=== PATIENT | male | born 2000 | race Caucasian/White ===

== ENCOUNTER 2022-12-05 16:42 | Inpatient (IN) ==
--- NOTE | 2022-12-05 17:33 | Emergency Department Note ---
History of Present Illness General Chief complaint: Abdominal Pain Stated complaint: ABDOMINAL PAIN Time Seen by Provider: 12/05/22 16:50 History of Present Illness This is an otherwise healthy 22-year-old male that presents to the emergency department via private vehicle. Patient referred by [facility]. Patient is here for evaluation of abdominal pain but notes he was referred here today secondary to abnormal testing prehospital. Patient states that he has been experiencing mid abdominal discomfort for the past few months. He states that he was then evaluated today at [facility]. Patient was informed there were abnormalities to his work-up and was referred here. Patient denies any pain at the present time. He feels well at the present time. He denies any history of blood clots. He denies any history of nausea, vomiting, chest pain, shortness of breath, fevers, chills, dizziness, headache or fatigue. No pertinent past medical history, surgeries or allergies. He has been taking some bismuth recently for his symptoms. He notes a few drops of blood in the diarrhea about a week ago but this has resolved. Patient notes that the abdominal pain worsened to its max discomfort about 2 weeks ago but since then has improved. Upon review of his prehospital testing as performed at [facility] there is a chest x-ray/abdomen x-ray revealing small bilateral pleural effusions suspected with bibasilar atelectasis. Normal bowel gas pattern. Ther e is a CK of 106. White blood cell count mildly elevated. Hemoglobin 14.4. D- dimer was elevated at 3826. Urine was negative. Lipase was normal. Metabolic panel overall without significant abnormality. Home Medications Medication Instructions Recorded Confirmed Type No Known Home Medications 12/05/22 12/05/22 History Allergies Allergy/AdvReac Type Severity Reaction Status Date / Time No Known Allergies Allergy Unverified 12/05/22 18:49 Past Med/Surg History Medical History No pertinent past medical history Surgical History No pertinent past surgical history Social History Smoking Status: Never smoker Feels Safe at Home: Yes Review of Systems A total of 10 systems reviewed and were otherwise negative Physical Exam Vital Signs Vital Signs - 24 hr 12/05/22 16:48 12/05/22 17:15 12/05/22 17:20 Temperature 36.5 C Temperature Source Temporal Artery Scan Pulse Rate 112 H 108 H Pulse Rate [Bilateral] 105 H Pulse Rate from SpO2 Sensor Respiratory Rate 20 16 Respiratory Effort / Characteristics Non-Labored Spontaneous Respiratory Depth Normal Blood Pressure 140/90 Blood Pressure [Left Arm] 113/79 Blood Pressure Mean 106 Blood Pressure Mean [Left Arm] 90 Pulse Oximetry 96 92 Oxygen Delivery Method Room Air Room Air Sepsis Recent Fever Within 48 Hours No Sepsis New/Unexplained Change in Mental Status No Sepsis Action Taken by Nursing No Action Required 12/05/22 18:36 12/05/22 19:00 12/05/22 20:00 Temperature Temperature Source Pulse Rate Pulse Rate [Bilateral] 97 H Pulse Rate from SpO2 Sensor 105 H 86 Respiratory Rate 16 12 Respiratory Effort / Characteristics Respiratory Depth Blood Pressure 135/95 Blood Pressure [Left Arm] 135/95 Blood Pressure Mean 108 Blood Pressure Mean [Left Arm] 108 Pulse Oximetry 97 95 94 Oxygen Delivery Method Room Air Sepsis Recent Fever Within 48 Hours Sepsis New/Unexplained Change in Mental Status Sepsis Action Taken by Nursing 12/05/22 20:30 12/05/22 21:00 12/05/22 21:30 Temperature Temperature Source Pulse Rate Pulse Rate [Bilateral] Pulse Rate from SpO2 Sensor 89 94 H 101 H Respiratory Rate Respiratory Effort / Characteristics Respiratory Depth Blood Pressure 130/78 Blood Pressure [Left Arm] Blood Pressure Mean 95 Blood Pressure Mean [Left Arm] Pulse Oximetry 97 97 98 Oxygen Delivery Method Sepsis Recent Fever Within 48 Hours Sepsis New/Unexplained Change in Mental Status Sepsis Action Taken by Nursing VITAL SIGNS - Vital signs and nursing notes were reviewed. Mildly tachycardic, otherwise stable GENERAL -22-year-old male appearing his stated age who is in no acute distress. Communicates well with provider and answers questions appropriately. SKIN - Without rashes. No meningeal or petechial rash HEAD - NC/AT. EYES - PERRL with EOMI bilaterally. Sclera anicteric. EARS - No deformities of external structures noted on gross examination bilaterally. NOSE - Midline and without cyanosis. No epistaxis or purulent drainage noted. MOUTH/OROPHARYNX - Without perioral cyanosis. NECK - Neck with FROM.No nuchal rigidity. LUNGS - Chest wall symmetric without accessory muscle use, intercostals retractions, or central cyanosis. Normal vesicular breath sounds CTA B/L. No wheezes, rales, or rhonchi appreciated. CARDIAC - RRR with S1/S2. No murmur, rubs, or gallops appreciated. ABDOMEN - Abdominal contour normal without pulsations or visible masses. BS normoactive all four quadrants. No tenderness but ascites suspected/fluid in the abdomen. EXTREMITIES - No clubbing or peripheral cyanosis. +5/5 strength noted in UE/LE bilaterally. NEUROLOGIC - Cranial nerves II through XII grossly intact. PSYCH - A&O, and cooperates fully with examiner. Pt is very pleasant and interacts well with examiner. -consent was obtained. Male commissioner of internal revenue JEFF Watkins at bedside. Testes within normal limits. Mild scrotal edema secondary to abdominopelvic ascites. No palpable mass. Course Administered Medications Discontinued Medications Ioversol (Optiray 320 125ml) 117 ml IV ONCE ONE Stop: 12/05/22 18:32 Last Admin: 12/05/22 18:31 Dose: 117 ml Documented By: NIKKY Medical Decision Making Laboratory Data 12/05/22 17:10 12/05/22 17:10 Lab Results 12/05/22 12/05/22 12/05/22 Range/Units 17:10 17:10 17:10 WBC 12.25 H (4.8-10.8) K/ul RBC 5.77 (4.70-6.10) M/uL Hgb 14.6 (14.0-18.0) g/dl Hct 44.0 (42.0-52.0) % MCV 76.3 L (80.0-100.0) fL MCH 25.3 (25.0-34.0) pg MCHC 33.2 (32.0-36.0) g/dL RDW Std Deviation 35.4 L (36.4-46.3) fL RDW Coeff of Ivan 13.2 (11.5-14.5) % Plt Count 556 H (130-400) K/uL MPV 8.8 L (9.4-12.4) fL Immature Gran % (Auto) 0.7 % Neut % (Auto) 77.5 % Lymph % (Auto) 12.2 % [place] % (Auto) 7.0 % Eos % (Auto) 1.9 % Baso % (Auto) 0.7 % Neut # (Auto) 9.49 H (1.40-6.50) K/uL Lymph # (Auto) 1.50 (1.2-3.4) K/uL [place] # (Auto) 0.86 H (0.11-0.59) K/uL Eos # (Auto) 0.23 (0-0.50) K/uL Baso # (Auto) 0.09 (0-0.2) K/uL Immature Gran # (Auto) 0.08 (0.01-0.20) K/uL ESR (0-15) mm/hr PT (9.0-12.0) Seconds INR (0.9-1.1) APTT (21.0-31.0) Seconds PTT Ratio Sodium 139 (136-145) mmol/L Potassium 3.6 (3.5-5.1) mmol/L Chloride 104 (98-107) mmol/L Carbon Dioxide 26 (21-32) mmol/L Anion Gap 9 (3-11) BUN 8 (6-23) mg/dl Creatinine 0.91 (0.6-1.4) mg/dl Est Cr Clr Drug Dosing 160.8 ml/min Est GFR ( Amer) 137.2 ml/min Est GFR (Non-Af Amer) 118.4 ml/min BUN/Creatinine Ratio 8.8 L (10-20) Glucose 95 (70-99(Fasting)) mg/dl Uric Acid 7.3 H (2.6-7.2) mg/dl Calcium 9.5 (8.6-10.3) mg/dl Total Bilirubin 0.3 (0.2-1.0) mg/dl AST 20 (13-39) U/L ALT 29 (7-52) U/L Alkaline Phosphatase 88 (34-104) U/L Troponin I High Sens 3.0 (0-20) pg/ml Total Protein 7.7 (6.0-8.3) gm/dl Albumin 4.1 (3.4-5.0) gm/dl Globulin 3.6 (2.5-4.0) gm/dl Albumin/Globulin Ratio 1.1 (0.9-2) Lipase 13 (11-82) U/L Lyme Disease IgG Ab Negative (Negative) Lyme Disease IgM Ab Negative (Negative) SARS-CoV-2, RNA, NAAT (NEGATIVE) 12/05/22 12/05/22 12/05/22 Range/Units 19:08 20:17 20:17 WBC (4.8-10.8) K/ul RBC (4.70-6.10) M/uL Hgb (14.0-18.0) g/dl Hct (42.0-52.0) % MCV (80.0-100.0) fL MCH (25.0-34.0) pg MCHC (32.0-36.0) g/dL RDW Std Deviation (36.4-46.3) fL RDW Coeff of Ivan (11.5-14.5) % Plt Count (130-400) K/uL MPV (9.4-12.4) fL Immature Gran % (Auto) % Neut % (Auto) % Lymph % (Auto) % [place] % (Auto) % Eos % (Auto) % Baso % (Auto) % Neut # (Auto) (1.40-6.50) K/uL Lymph # (Auto) (1.2-3.4) K/uL [place] # (Auto) (0.11-0.59) K/uL Eos # (Auto) (0-0.50) K/uL Baso # (Auto) (0-0.2) K/uL Immature Gran # (Auto) (0.01-0.20) K/uL ESR 32 H (0-15) mm/hr PT 11.6 (9.0-12.0) Seconds INR 1.1 (0.9-1.1) APTT 29.3 (21.0-31.0) Seconds PTT Ratio 1.0 Sodium (136-145) mmol/L Potassium (3.5-5.1) mmol/L Chloride (98-107) mmol/L Carbon Dioxide (21-32) mmol/L Anion Gap (3-11) BUN (6-23) mg/dl Creatinine (0.6-1.4) mg/dl Est Cr Clr Drug Dosing ml/min Est GFR ( Amer) ml/min Est GFR (Non-Af Amer) ml/min BUN/Creatinine Ratio (10-20) Glucose (70-99(Fasting)) mg/dl Uric Acid (2.6-7.2) mg/dl Calcium (8.6-10.3) mg/dl Total Bilirubin (0.2-1.0) mg/dl AST (13-39) U/L ALT (7-52) U/L Alkaline Phosphatase (34-104) U/L Troponin I High Sens (0-20) pg/ml Total Protein (6.0-8.3) gm/dl Albumin (3.4-5.0) gm/dl Globulin (2.5-4.0) gm/dl Albumin/Globulin Ratio (0.9-2) Lipase (11-82) U/L Lyme Disease IgG Ab (Negative) Lyme Disease IgM Ab (Negative) SARS-CoV-2, RNA, NAAT NEGATIVE (NEGATIVE) Imaging Data Radiologist's Impression: Abdomen/Pelvis CT 12/05/22 17:25 CT ANGIOGRAM OF THE CHEST; CT SCAN OF THE ABDOMEN AND PELVIS WITH IV CONTRAST CLINICAL HISTORY: Atypical chest pain. Generalized abdominal pain. Elevated d- dimer. COMPARISON STUDY: No priors. TECHNIQUE: Following the IV administration of of Optiray 320, CT angiogram of the chest is performed from the upper abdomen to the thoracic inlet utilizing the pulmonary embolus protocol. Images are reviewed in the axial, sagittal, coronal planes. 3-D MIPS images are created and assessed. Subsequently, CT scan of the abdomen and pelvis was performed from the lung bases to the proximal femora. Images are reviewed in the axial, sagittal, and coronal planes. IV contrast was administered without complication. A dose lowering technique was utilized adhering to the principles of ALARA. CT DOSE: 2323.64 mGy.cm FINDINGS: CHEST: Thyroid: Imaged portions of the thyroid gland are normal in size and attenuation. Thoracic aorta: The thoracic aorta is normal in caliber and demonstrates standard 3-vessel arch anatomy. No dissection is seen. Pulmonary vasculature: The pulmonary trunk is normal in caliber. There are no filling defects identified in the main, lobar, or segmental pulmonary arteries to indicate pulmonary embolus. Heart: The heart is mildly enlarged noting a small to moderate pericardial effusion. Lungs and pleural spaces: There are trace pleural effusions with bibasilar atelectasis. There is no airspace consolidation typical for pneumonia. The trachea and central airways are clear. Mediastinum: There is no mediastinal lymphadenopathy. Diana: Clear. Axillae: There is no axillary lymphadenopathy. Bony thorax: No lytic or blastic lesions are identified. ABDOMEN AND PELVIS: Liver: The contrast-enhanced liver is normal in size, contour, and attenuation. There is no intrahepatic biliary ductal dilatation. The hepatic veins and portal veins are patent. Gallbladder: Unremarkable. Spleen: Normal in size and attenuation. Pancreas: Unremarkable. Adrenal glands: Unremarkable. Kidneys: The contrast enhanced kidneys are normal in size and without hydronephrosis. The kidneys enhance symmetrically. Abdominal vasculature: The abdominal aorta is normal in course and caliber. Stomach and bowel: There is a small hiatal hernia. There is no bowel obst ruction. Residual enteric contrast is seen throughout the colon. The small bowel loops appear mildly thick walled. The appendix is normal as visualized. Peritoneum: There is a moderate volume of abdominopelvic ascites which appears at least partially loculated. There is mild associated peritoneal thickening. No intraperitoneal free air is seen. Lymphadenopathy: Mild enlargement cardiophrenic nodes measure up to 11 mm in short axis. No additional enlarged lymph nodes are seen in the abdomen or pelvis. Pelvic viscera: The bladder, prostate, and seminal vesicles are normal as visualized. Skeletal structures: No lytic or blastic lesions are seen. IMPRESSION: 1. There is no evidence of pulmonary embolus in the main, lobar, or segmental pulmonary arteries. 2. Mild cardiac enlargement noting a small to moderate pericardial effusion. 3. Trace pleural effusions. No airspace consolidation is seen typical for pneumonia. 4. There is a moderate volume of abdominopelvic ascites which appears to be at least partially loculated. There is associated peritoneal thickening. The etiology of this fluid is unclear, and the sterility of this fluid cannot be assessed by imaging. Correlate clinically. 5. The small bowel loops are mildly thick walled. This could be related to a nonspecific enteritis, hypoproteinemia, or possibly surrounding fluid/inflammation. Correlate clinically. 6. Additional findings as above. ACT 112: Negative or not required by law. Electronically signed by: Rob Buitrago M.D. 12/05/2022 6:50 PM Chest CTA 12/05/22 17:25 CT ANGIOGRAM OF THE CHEST; CT SCAN OF THE ABDOMEN AND PELVIS WITH IV CONTRAST CLINICAL HISTORY: Atypical chest pain. Generalized abdominal pain. Elevated d-d ginette. COMPARISON STUDY: No priors. TECHNIQUE: Following the IV administration of /17 of Optiray 320, CT angiogram of the chest is performed from the upper abdomen to the thoracic inlet utilizing the pulmonary embolus protocol. Images are reviewed in the axial, sagittal, coronal planes. 3-D MIPS images are created and assessed. Subsequently, CT scan of the abdomen and pelvis was performed from the lung bases to the proximal femora. Images are reviewed in the axial, sagittal, and coronal planes. IV contrast was administered without complication. A dose lowering technique was utilized adhering to the principles of ALARA. CT DOSE: 2323.64 mGy.cm FINDINGS: CHEST: Thyroid: Imaged portions of the thyroid gland are normal in size and attenua tion. Thoracic aorta: The thoracic aorta is normal in caliber and demonstrates standard 3-vessel arch anatomy. No dissection is seen. Pulmonary vasculature: The pulmonary trunk is normal in caliber. There are no filling defects identified in the main, lobar, or segmental pulmonary arteries to indicate pulmonary embolus. Heart: The heart is mildly enlarged noting a small to moderate pericardial effusion. Lungs and pleural spaces: There are trace pleural effusions with bibasilar atelectasis. There is no airspace consolidation typical for pneumonia. The trachea and central airways are clear. Mediastinum: There is no mediastinal lymphadenopathy. Diana: Clear. Axillae: There is no axillary lymphadenopathy. Bony thorax: No lytic or blastic lesions are identified. ABDOMEN AND PELVIS: Liver: The contrast-enhanced liver is normal in size, contour, and attenuation. There is no intrahepatic biliary ductal dilatation. The hepatic veins and portal veins are patent. Gallbladder: Unremarkable. Spleen: Normal in size and attenuation. Pancreas: Unremarkable. Adrenal glands: Unremarkable. Kidneys: The contrast enhanced kidneys are normal in size and without hydronephrosis. The kidneys enhance symmetrically. Abdominal vasculature: The abdominal aorta is normal in course and caliber. Stomach and bowel: There is a small hiatal hernia. There is no bowel obstruction. Residual enteric contrast is seen throughout the colon. The small bowel loops appear mildly thick walled. The appendix is normal as visualized. Peritoneum: There is a moderate volume of abdominopelvic ascites which appears at least partially loculated. There is mild associated peritoneal thickening. No intraperitoneal free air is seen. Lymphadenopathy: Mild enlargement cardiophrenic nodes measure up to 11 mm in short axis. No additional enlarged lymph nodes are seen in the abdomen or pelvis. Pelvic viscera: The bladder, prostate, and seminal vesicles are normal as visualized. Skeletal structures: No lytic or blastic lesions are seen. IMPRESSION: 1. There is no evidence of pulmonary embolus in the main, lobar, or segmental pulmonary arteries. 2. Mild cardiac enlargement noting a small to moderate pericardial effusion. 3. Trace pleural effusions. No airspace consolidation is seen typical for pneumonia. 4. There is a moderate volume of abdominopelvic ascites which appears to be at least partially loculated. There is associated peritoneal thickening. The etiology of this fluid is unclear, and the sterility of this fluid cannot be assessed by imaging. Correlate clinically. 5. The small bowel loops are mildly thick walled. This could be related to a nonspecific enteritis, hypoproteinemia, or possibly surrounding fluid/inflammation. Correlate clinically. 6. Additional findings as above. ACT 112: Negative or not required by law. Electronically signed by: Rob Buitrago M.D. 12/05/2022 6:50 PM MDM Narrative Patient was seen and evaluated as above in room C07. Review was performed of triage nursing notes and vital signs. Records from [facility] provided by the patient in the room reviewed. Patient was noted to have undergone a chest x-ray with abdominal series which revealed small bilateral pleural effusion suspected along with bibasilar atelectasis with a normal bowel gas pattern. Patient also had a CPK, CBC, D-dimer, urinalysis, CMP, lipase. D- dimer was found to be significantly elevated at 3826. There is no chest pain or shortness of breath. No history of PE. After obtaining a thorough history and physical examination the above work up was performed. Options of care were discussed with the patient. IV access was established. Labs were drawn. There is leukocytosis 12.25. No anemia. No emergent metabolic disturbance. Troponin within normal limits. An EKG was obtained which reveals sinus tachycardia at a rate of 102 bpm. QTc 424. QRS 86. There is no ST elevation. CT scan of the abdomen and pelvis as well as CTA of the chest was obtained. Results as above. There is no PE. There is mild cardiac enlargement with a small to moderate pericardial effusion. Trace pleural effusions noted. No pneumonia. There is moderate volume of abdominopelvic ascites which appears to be at least partially loculated. There is associated peritoneal thickening. The patient on examination does not have any abdominal tenderness palpation. There is no guarding or rigidity. No reported fevers. He does not appear ill on exam. There is also on CT small bowel loops that are mildly thick-walled. At this time given the findings and presentation I do believe that further evaluation and management in the inpatient setting is warranted. Case discussed with the hospitalist service. Please refer to further documentation regarding his stay. I do not believe that he requires emergent paracentesis or emergent antibiotics but certainly his clinical course will be trended in the inpatient setting. I will again note that the patient on examination has no complaints of any pain or symptoms. He is symptom-free presently. He has no tenderness to palpation of the abdomen. There is no chest pain or shortness of breath. GCS: 15 In the evaluation and treatment of this patient the following differential diagnoses were entertained: Peritonitis, PE, pneumonia, malignancy, among others Impression & Plan Abdominal ascites, Pleural effusion, Pericardial effusion, Abnormal CT scan, chest, Abnormal computed tomography of abdomen and pelvis Discharge Plan Visit Data Chief Complaint: Abdominal Pain Stated Complaint: ABDOMINAL PAIN ED Provider: Doc Sanchez ED Midlevel Provider: Kirby Urbano Discharge Problem: Abdominal ascites, Pleural effusion, Pericardial effusion, Abnormal CT scan, chest, Abnormal computed tomography of abdomen and pelvis Patient Disposition: Admitted As Inpatient Condition: Good Discharge Instructions Interventions: ED Discharge Assessment Last Done: 12/05/22 21:41 Prescriptions Prescriptions: No Action No Known Home Medications
[2022-12-05 17:56] LABS: Basophils # (auto) 0.09 K/uL (0-0.2); Basophils % (auto) 0.7 %; Eosinophils # (auto) 0.23 K/uL (0-0.50); Eosinophils % (auto) 1.9 %; Hemoglobin 14.6 g/dl (14.0-18.0); Immature Granulocytes # (auto) 0.08 K/uL (0.01-0.20); Immature Granulocytes % (auto) 0.7 %; Lymphocytes % (auto) 12.2 %; Mean Corpuscular Hemoglobin 25.3 pg (25.0-34.0); Mean Corpuscular Hgb Conc 33.2 g/dL (32.0-36.0); Mean Corpuscular Volume 76.3 fL (80.0-100.0); Mean Platelet Volume 8.8 fL (9.4-12.4); Monocytes # (auto) 0.86 K/uL (0.11-0.59); Neutrophils # (auto) 9.49 K/uL (1.40-6.50); Neutrophils % (auto) 77.5 %; Platelet Count 556 K/uL (130-400); RDW Coefficient of Variation 13.2 % (11.5-14.5); RDW Standard Deviation 35.4 fL (36.4-46.3); Red Blood Count 5.77 M/uL (4.70-6.10); White Blood Count 12.25 K/ul (4.8-10.8)
[2022-12-05 18:14] LABS: Albumin Globulin Ratio 1.1 (0.9-2); Albumin Level 4.1 gm/dl (3.4-5.0); BUN Creatinine Ratio 8.8 (10-20); Bilirubin,Total 0.3 mg/dl (0.2-1.0); Calcium 9.5 mg/dl (8.6-10.3); Creatinine Clr Calc Pharmacy 160.8 ml/min; Est GFR (African American) 137.2 ml/min; Est GFR (Non-African American) 118.4 ml/min; Globulin 3.6 gm/dl (2.5-4.0); Potassium 3.6 mmol/L (3.5-5.1); Total Protein 7.7 gm/dl (6.0-8.3)
[2022-12-05] MEDS ORDERED: OPTIRAY 320 125ml IV ONE (18:31)
--- NOTE | 2022-12-05 18:52 | CT Scan Report ---
CT ANGIOGRAM OF THE CHEST; CT SCAN OF THE ABDOMEN AND PELVIS WITH IV CONTRAST CLINICAL HISTORY: Atypical chest pain. Generalized abdominal pain. Elevated d-dimer. COMPARISON STUDY: No priors. TECHNIQUE: Following the IV administration of of Optiray 320, CT angiogram of the chest is perfor med from the upper abdomen to the thoracic inlet utilizing the pulmonary embolus protocol. Images are reviewed in the axial, sagittal, coronal planes. 3-D MIPS images are created and assessed. Subsequen tly, CT scan of the abdomen and pelvis was performed from the lung bases to the proximal femora. Imag es are reviewed in the axial, sagittal, and coronal planes. IV contrast was administered without comp lication. A dose lowering technique was utilized adhering to the principles of ALARA. CT DOSE: 2323.64 mGy.cm FINDINGS: CHEST: Thyroid: Imaged portions of the thyroid gland are normal in size and attenuation. Thoracic aorta: The thoracic aorta is normal in caliber and demonstrates standard 3-vessel arch anato my. No dissection is seen. Pulmonary vasculature: The pulmonary trunk is normal in caliber. There are no filling defects identif ied in the main, lobar, or segmental pulmonary arteries to indicate pulmonary embolus. Heart: The heart is mildly enlarged noting a small to moderate pericardial effusion. Lungs and pleural spaces: There are trace pleural effusions with bibasilar atelectasis. There is no a irspace consolidation typical for pneumonia. The trachea and central airways are clear. Mediastinum: There is no mediastinal lymphadenopathy. Diana: Clear. Axillae: There is no axillary lymphadenopathy. Bony thorax: No lytic or blastic lesions are identified. ABDOMEN AND PELVIS: Liver: The contrast-enhanced liver is normal in size, contour, and attenuation. There is no intrahepa tic biliary ductal dilatation. The hepatic veins and portal veins are patent. Gallbladder: Unremarkable. Spleen: Normal in size and attenuation. Pancreas: Unremarkable. Adrenal glands: Unremarkable. Kidneys: The contrast enhanced kidneys are normal in size and without hydronephrosis. The kidneys enh ance symmetrically. Abdominal vasculature: The abdominal aorta is normal in course and caliber. Stomach and bowel: There is a small hiatal hernia. There is no bowel obstruction. Residual enteric co ntrast is seen throughout the colon. The small bowel loops appear mildly thick walled. The appendix i s normal as visualized. Peritoneum: There is a moderate volume of abdominopelvic ascites which appears at least partially loc ulated. There is mild associated peritoneal thickening. No intraperitoneal free air is seen. Lymphadenopathy: Mild enlargement cardiophrenic nodes measure up to 11 mm in short axis. No additiona l enlarged lymph nodes are seen in the abdomen or pelvis. Pelvic viscera: The bladder, prostate, and seminal vesicles are normal as visualized. Skeletal structures: No lytic or blastic lesions are seen. IMPRESSION: 1. There is no evidence of pulmonary embolus in the main, lobar, or segmental pulmonary arteries. 2. Mild cardiac enlargement noting a small to moderate pericardial effusion. 3. Trace pleural effusions. No airspace consolidation is seen typical for pneumonia. 4. There is a moderate volume of abdominopelvic ascites which appears to be at least partially locula ab. There is associated peritoneal thickening. The etiology of this fluid is unclear, and the steril ity of this fluid cannot be assessed by imaging. Correlate clinically. 5. The small bowel loops are mildly thick walled. This could be related to a nonspecific enteritis, h ypoproteinemia, or possibly surrounding fluid/inflammation. Correlate clinically. 6. Additional findings as above. ACT 112: Negative or not required by law. Electronically signed by: Rob Buitrago M.D. 12/05/2022 6:50 PM
--- NOTE | 2022-12-05 20:35 | History & Physical Report ---
Date of Service December 05, 2022 Assessment & Plan (1) Abdominal ascites: (2) Pericardial effusion: (3) Cardiac enlargement: (4) Thickened small bowel: Plan Abdominopelvic ascites/small bowel wall thickening- Radiologic interpretation suggest possible nonspecific enteritis, hypoprotei nemia or possibly surrounding fluid/inflammation. Patient's only symptoms are that of mild generalized abdominal pain, without nausea or vomiting or diarrhea. Unclear etiology at this time Consult gastroenterology Consult IR for diagnostic paracentesis Pericardial effusion- Patient denies chest pain, shortness of breath, dyspnea on exertion or any other associated symptoms Is also mild cardiac enlargement The patient will be admitted to telemetry for serial cardiac enzymes, serial EKG's, cardiac rhythm monitoring and a 2-D echocardiogram with Dopplers. Consult cardiology Leukocytosis/thrombocytosis- WBC 12.25, platelets 556 Order peripheral smear Order following studies: Acute hepatitis profile, PT/INR/PTT, sed rate, SABRINA, peripheral smear, parvovirus, coxsackie B virus, tick panel History of Present Illness Chief Complaint: The patient is referred to the emergency department from [facility] due to his presentation there with abdominal pain and subsequent laboratories showing an elevated D-dimer Primary Care Provider: [facility] The patient is a 22-year-old Sinhala male with no significant past medical history who has been setting at [facility] for 6 months. He presented to the [facility] there due to abdominal pain that been persistent for the past 2 weeks, and figured it was finally time to get it checked out. He has no other associated symptomatology such as nausea, vomiting or diarrhea. He denies any alcohol or drug use. He had laboratory work done there that included an elevated D-dimer, and was thus referred to the emergency department for assessment for possible blood clots. Significant laboratories: WBC 12.25, hemoglobin 14.6, hematocrit 44.[address] angiography of chest along with CT abdomen the pelvis: Small to moderate- sized pericardial effusion. Moderate ascites that may be partially loculated. Nonspecific enteritis. Allergies Allergy/AdvReac Type Severity Reaction Status Date / Time No Known Allergies Allergy Unverified 12/05/22 18:49 Home Medications Medication Instructions Recorded Confirmed Type No Known Home Medications 12/05/22 12/05/22 History Past Med/Surg History Medical History No pertinent past medical history Surgical History No pertinent past surgical history Social History Smoking Status: Never smoker Feels Safe at Home: Yes Review of Systems Review of Systems: The patient denies chest pain, palpitations, shortness of breath, dyspnea on exertion, cough, lower extremity swelling, sore throat, fevers, chills, sweats, weight change, fatigue, nausea, vomiting, diarrhea , constipation, blood in urine or stool, dysuria, urinary frequency or urgency, lightheadedness, dizziness, headache, memory loss, loss of consciousness, rash, abnormal bruising or bleeding, imbalance, focal or generalized weakness, numbness or tingling in arms or legs, generalized arthralgias or myalgias, back or neck pain, or night sweats. The review of systems is otherwise negative other than for that already noted above, and at least 10 systems have been reviewed. Physical Exam Physical Exam: The patient is awake, alert and oriented 3, well developed and well nourished, normocephalic and atraumatic, lying in bed and in no acute distress. HEENT--PERRL, EOMI, mucous membranes and oropharynx normal. Neck--supple. No JVD. No bruits. Thyroid normal, trachea midline, no adenopathy. Heart--normal S1 and S2. No murmurs, rubs or gallops. Lungs--clear bilaterally, no respiratory distress, no accessory muscle use. Abdomen--normal bowel sounds and soft. Nontender. Nondistended. Obese Extremities--no cyanosis or clubbing. No edema. There are good distal pulses b/l. Dermatologic--normal skin turgor, normal color, no abnormal lymph nodes, no ra sh. Neurologic--cranial nerves II through XII grossly intact. Rheumatologic--normal range of motion. Psychiatric--normal affect. Results & Data Results & Data Vital Signs (Past 12 Hours) Vital Signs Temp Pulse Pulse Resp BP BP Pulse Ox 12/05/22 19:00 12 135/95 95 12/05/22 18:36 97 H 16 135/95 97 12/05/22 17:20 108 H 12/05/22 17:15 105 H 16 113/79 92 12/05/22 16:48 36.5 C 112 H 20 140/90 96 O2 Del Method 12/05/22 19:00 12/05/22 18:36 Room Air 12/05/22 17:20 12/05/22 17:15 Room Air 12/05/22 16:48 Room Air Laboratory Results Laboratory Results WBC 12.25 K/ul (4.8-10.8) H 12/05/22 17:10 RBC 5.77 M/uL (4.70-6.10) 12/05/22 17:10 Hgb 14.6 g/dl (14.0-18.0) 12/05/22 17:10 Hct 44.0 % (42.0-52.0) 12/05/22 17:10 MCV 76.3 fL (80.0-100.0) L 12/05/22 17:10 MCH 25.3 pg (25.0-34.0) 12/05/22 17:10 MCHC 33.2 g/dL (32.0-36.0) 12/05/22 17:10 RDW Std Deviation 35.4 fL (36.4-46.3) L 12/05/22 17:10 RDW Coeff of Ivan 13.2 % (11.5-14.5) 12/05/22 17:10 Plt Count 556 K/uL (130-400) H 12/05/22 17:10 MPV 8.8 fL (9.4-12.4) L 12/05/22 17:10 Immature Gran % (Auto) 0.7 % 12/05/22 17:10 Neut % (Auto) 77.5 % 12/05/22 17:10 Lymph % (Auto) 12.2 % 12/05/22 17:10 Lea % (Auto) 7.0 % 12/05/22 17:10 Eos % (Auto) 1.9 % 12/05/22 17:10 Baso % (Auto) 0.7 % 12/05/22 17:10 Neut # (Auto) 9.49 K/uL (1.40-6.50) H 12/05/22 17:10 Lymph # (Auto) 1.50 K/uL (1.2-3.4) 12/05/22 17:10 Lea # (Auto) 0.86 K/uL (0.11-0.59) H 12/05/22 17:10 Eos # (Auto) 0.23 K/uL (0-0.50) 12/05/22 17:10 Baso # (Auto) 0.09 K/uL (0-0.2) 12/05/22 17:10 Immature Gran # (Auto) 0.08 K/uL (0.01-0.20) 12/05/22 17:10 ESR 32 mm/hr (0-15) H 12/05/22 20:17 PT 11.6 Seconds (9.0-12.0) 12/05/22 20:17 INR 1.1 (0.9-1.1) 12/05/22 20:17 APTT 29.3 Seconds (21.0-31.0) 12/05/22 20:17 PTT Ratio 1.0 12/05/22 20:17 Sodium 139 mmol/L (136-145) 12/05/22 17:10 Potassium 3.6 mmol/L (3.5-5.1) 12/05/22 17:10 Chloride 104 mmol/L (98-107) 12/05/22 17:10 Carbon Dioxide 26 mmol/L (21-32) 12/05/22 17:10 Anion Gap 9 (3-11) 12/05/22 17:10 BUN 8 mg/dl (6-23) 12/05/22 17:10 Creatinine 0.91 mg/dl (0.6-1.4) 12/05/22 17:10 Est Cr Clr Drug Dosing 160.8 ml/min 12/05/22 17:10 Est GFR ( Amer) 137.2 ml/min 12/05/22 17:10 Est GFR (Non-Af Amer) 118.4 ml/min 12/05/22 17:10 BUN/Creatinine Ratio 8.8 (10-20) L 12/05/22 17:10 Glucose 95 mg/dl (70-99(Fasting)) 12/05/22 17:10 Uric Acid 7.3 mg/dl (2.6-7.2) H 12/05/22 17:10 Calcium 9.5 mg/dl (8.6-10.3) 12/05/22 17:10 Total Bilirubin 0.3 mg/dl (0.2-1.0) 12/05/22 17:10 AST 20 U/L (13-39) 12/05/22 17:10 ALT 29 U/L (7-52) 12/05/22 17:10 Alkaline Phosphatase 88 U/L (34-104) 12/05/22 17:10 Troponin I High Sens 3.0 pg/ml (0-20) 12/05/22 17:10 Total Protein 7.7 gm/dl (6.0-8.3) 12/05/22 17:10 Albumin 4.1 gm/dl (3.4-5.0) 12/05/22 17:10 Globulin 3.6 gm/dl (2.5-4.0) 12/05/22 17:10 Albumin/Globulin Ratio 1.1 (0.9-2) 12/05/22 17:10 Lipase 13 U/L (11-82) 12/05/22 17:10 Lyme Disease IgG Ab Negative (Negative) 12/05/22 17:10 Lyme Disease IgM Ab Negative (Negative) 12/05/22 17:10 SARS-CoV-2, RNA, NAAT NEGATIVE (NEGATIVE) 12/05/22 19:08 Impressions Abdomen/Pelvis CT 12/05/22 17:25 CT ANGIOGRAM OF THE CHEST; CT SCAN OF THE ABDOMEN AND PELVIS WITH IV CONTRAST CLINICAL HISTORY: Atypical chest pain. Generalized abdominal pain. Elevated d- dimer. COMPARISON STUDY: No priors. TECHNIQUE: Following the IV administration of 17 of Optiray 320, CT angiogram of the chest is performed from the upper abdomen to the thoracic inlet utilizing the pulmonary embolus protocol. Images are reviewed in the axial, sagittal, coronal planes. 3-D MIPS images are created and assessed. Subsequently, CT scan of the abdomen and pelvis was performed from the lung bases to the proximal femora. Images are reviewed in the axial, sagittal, and coronal planes. IV contrast was administered without complication. A dose lowering technique was utilized adhering to the principles of ALARA. CT DOSE: 2323.64 mGy.cm FINDINGS: CHEST: Thyroid: Imaged portions of the thyroid gland are normal in size and attenuation. Thoracic aorta: The thoracic aorta is normal in caliber and demonstrates standard 3-vessel arch anatomy. No dissection is seen. Pulmonary vasculature: The pulmonary trunk is normal in caliber. There are no filling defects identified in the main, lobar, or segmental pulmonary arteries to indicate pulmonary embolus. Heart: The heart is mildly enlarged noting a small to moderate pericardial effus ion. Lungs and pleural spaces: There are trace pleural effusions with bibasilar atelectasis. There is no airspace consolidation typical for pneumonia. The trachea and central airways are clear. Mediastinum: There is no mediastinal lymphadenopathy. Diana: Clear. Axillae: There is no axillary lymphadenopathy. Bony thorax: No lytic or blastic lesions are identified. ABDOMEN AND PELVIS: Liver: The contrast-enhanced liver is normal in size, contour, and attenuation. There is no intrahepatic biliary ductal dilatation. The hepatic veins and portal veins are patent. Gallbladder: Unremarkable. Spleen: Normal in size and attenuation. Pancreas: Unremarkable. Adrenal glands: Unremarkable. Kidneys: The contrast enhanced kidneys are normal in size and without hydronephrosis. The kidneys enhance symmetrically. Abdominal vasculature: The abdominal aorta is normal in course and caliber. Stomach and bowel: There is a small hiatal hernia. There is no bowel obstruction. Residual enteric contrast is seen throughout the colon. The small bowel loops appear mildly thick walled. The appendix is normal as visualized. Peritoneum: There is a moderate volume of abdominopelvic ascites which appears at least partially loculated. There is mild associated peritoneal thickening. No intraperitoneal free air is seen. Lymphadenopathy: Mild enlargement cardiophrenic nodes measure up to 11 mm in short axis. No additional enlarged lymph nodes are seen in the abdomen or pelvis. Pelvic viscera: The bladder, prostate, and seminal vesicles are normal as visualized. Skeletal structures: No lytic or blastic lesions are seen. IMPRESSION: 1. There is no evidence of pulmonary embolus in the main, lobar, or segmental pulmonary arteries. 2. Mild cardiac enlargement noting a small to moderate pericardial effusion. 3. Trace pleural effusions. No airspace consolidation is seen typical for pneumonia. 4. There is a moderate volume of abdominopelvic ascites which appears to be at least partially loculated. There is associated peritoneal thickening. The etiology of this fluid is unclear, and the sterility of this fluid cannot be assessed by imaging. Correlate clinically. 5. The small bowel loops are mildly thick walled. This could be related to a nonspecific enteritis, hypoproteinemia, or possibly surrounding fluid/inflammation. Correlate clinically. 6. Additional findings as above. ACT 112: Negative or not required by law. Electronically signed by: Rob Buitrago M.D. 12/05/2022 6:50 PM Chest CTA 12/05/22 17:25 CT ANGIOGRAM OF THE CHEST; CT SCAN OF THE ABDOMEN AND PELVIS WITH IV CONTRAST CLINICAL HISTORY: Atypical chest pain. Generalized abdominal pain. Elevated d- dimer. COMPARISON STUDY: No priors. TECHNIQUE: Following the IV administration of / of Optiray 320, CT angiogram of the chest is performed from the upper abdomen to the thoracic inlet utilizing the pulmonary embolus protocol. Images are reviewed in the axial, sagittal, coronal planes. 3-D MIPS images are created and assessed. Subsequently, CT scan of the abdomen and pelvis was performed from the lung bases to the proximal femora. Images are reviewed in the axial, sagittal, and coronal planes. IV contrast was administered without complication. A dose lowering technique was utilized adhering to the principles of ALARA. CT DOSE: 2323.64 mGy.cm FINDINGS: CHEST: Thyroid: Imaged portions of the thyroid gland are normal in size and attenuation. Thoracic aorta: The thoracic aorta is normal in caliber and demonstrates standard 3-vessel arch anatomy. No dissection is seen. Pulmonary vasculature: The pulmonary trunk is normal in caliber. There are no filling defects identified in the main, lobar, or segmental pulmonary arteries to indicate pulmonary embolus. Heart: The heart is mildly enlarged noting a small to moderate pericardial effusion. Lungs and pleural spaces: There are trace pleural effusions with bibasilar atelectasis. There is no airspace consolidation typical for pneumonia. The trachea and central airways are clear. Mediastinum: There is no mediastinal lymphadenopathy. Diana: Clear. Axillae: There is no axillary lymphadenopathy. Bony thorax: No lytic or blastic lesions are identified. ABDOMEN AND PELVIS: Liver: The contrast-enhanced liver is normal in size, contour, and attenuation. There is no intrahepatic biliary ductal dilatation. The hepatic veins and portal veins are patent. Gallbladder: Unremarkable. Spleen: Normal in size and attenuation. Pancreas: Unremarkable. Adrenal glands: Unremarkable. Kidneys: The contrast enhanced kidneys are normal in size and without hydronephrosis. The kidneys enhance symmetrically. Abdominal vasculature: The abdominal aorta is normal in course and caliber. Stomach and bowel: There is a small hiatal hernia. There is no bowel obstruction. Residual enteric contrast is seen throughout the colon. The small bowel loops appear mildly thick walled. The appendix is normal as visualized. Peritoneum: There is a moderate volume of abdominopelvic ascites which appears at least partially loculated. There is mild associated peritoneal thickening. No intraperitoneal free air is seen. Lymphadenopathy: Mild enlargement cardiophrenic nodes measure up to 11 mm in short axis. No additional enlarged lymph nodes are seen in the abdomen or pelvis. Pelvic viscera: The bladder, prostate, and seminal vesicles are normal as visualized. Skeletal structures: No lytic or blastic lesions are seen. IMPRESSION: 1. There is no evidence of pulmonary embolus in the main, lobar, or segmental pulmonary arteries. 2. Mild cardiac enlargement noting a small to moderate pericardial effusion. 3. Trace pleural effusions. No airspace consolidation is seen typical for pneumonia. 4. There is a moderate volume of abdominopelvic ascites which appears to be at least partially loculated. There is associated peritoneal thickening. The etiology of this fluid is unclear, and the sterility of this fluid cannot be assessed by imaging. Correlate clinically. 5. The small bowel loops are mildly thick walled. This could be related to a n onspecific enteritis, hypoproteinemia, or possibly surrounding fluid/inflammation. Correlate clinically. 6. Additional findings as above. ACT 112: Negative or not required by law. Electronically signed by: Rob Buitrago M.D. 12/05/2022 6:50 PM Code Status & VTE Plan Code Status Full code VTE Prophylaxis Plan VTE Prophylaxis will be ordered: Yes PG Care Time/CCT Total # of Minutes Spent Total Time Spent with Patient: Total time spent is greater than 50% in coordination of care (as documented) at patient's floor/unit and/or counseling patient: Coding Level of Care Code 43440 INT INP/OBS CARE 3/75MIN Diagnoses Abdominal ascites R18.8 Pericardial effusion I31.39 Cardiac enlargement I51.7 Thickened small bowel K63.9
[2022-12-05 20:41] LABS: Uric Acid 7.3 mg/dl (2.6-7.2)
[2022-12-05 21:08] LABS: INR 1.1 (0.9-1.1); Partial Thromboplastin Time 29.3 Seconds (21.0-31.0); Prothrombin Time 11.6 Seconds (9.0-12.0)
[2022-12-05 21:45] LABS: Lyme Ab IgG w/WB Rflx Negative (Negative); Lyme Ab IgM w/WB Rflx Negative (Negative)
[2022-12-05] MEDS ORDERED: ONDANSETRON INJ 2 MG/ML 2 ML VIAL IV PRN (22:08)
[2022-12-05] MEDS: NSS + 20MEQ KCL 20 MEQ/1,000 ML BAG IV SCH (23:36)
[2022-12-06 05:35] LABS: Basophils # (auto) 0.07 K/uL (0-0.2); Basophils % (auto) 0.6 %; Eosinophils # (auto) 0.33 K/uL (0-0.50); Eosinophils % (auto) 2.8 %; Hematocrit (blood only) 40.9 % (42.0-52.0); Hemoglobin 13.5 g/dl (14.0-18.0); Immature Granulocytes # (auto) 0.06 K/uL (0.01-0.20); Immature Granulocytes % (auto) 0.5 %; Lymphocytes % (auto) 14.3 %; Mean Corpuscular Hemoglobin 25.2 pg (25.0-34.0); Mean Corpuscular Volume 76.3 fL (80.0-100.0); Mean Platelet Volume 8.7 fL (9.4-12.4); Monocytes # (auto) 1.01 K/uL (0.11-0.59); Monocytes % (auto) 8.5 %; Neutrophils # (auto) 8.73 K/uL (1.40-6.50); Neutrophils % (auto) 73.3 %; Platelet Count 452 K/uL (130-400); RDW Coefficient of Variation 13.4 % (11.5-14.5); RDW Standard Deviation 36.7 fL (36.4-46.3); Red Blood Count 5.36 M/uL (4.70-6.10)
[2022-12-06 05:54] LABS: Albumin Globulin Ratio 1.1 (0.9-2); Albumin Level 3.6 gm/dl (3.4-5.0); Bilirubin,Total 0.4 mg/dl (0.2-1.0); Calcium 8.9 mg/dl (8.6-10.3); Creatinine Clr Calc Pharmacy 135.4 ml/min; Est GFR (African American) 122.4 ml/min; Est GFR (Non-African American) 105.6 ml/min; Globulin 3.2 gm/dl (2.5-4.0); Magnesium 2.4 mg/dl (1.7-2.4); Potassium 4.1 mmol/L (3.5-5.1); Total Protein 6.8 gm/dl (6.0-8.3)
[2022-12-06 06:00] LABS: Troponin I High Sensitivity 4.5 pg/ml (0-20)
--- NOTE | 2022-12-06 07:41 | Hospitalist Progress Note ---
Date of Service December 06, 2022 Assessment & Plan (1) Abdominal ascites: (2) Pericardial effusion: (3) Cardiac enlargement: (4) Thickened small bowel: Plan Abdominopelvic ascites/small bowel wall thickening- Radiologic interpretation suggest possible nonspecific enteritis, hypoproteinemia or possibly surrounding fluid/inflammation. Awaiting full paracentesis report. Currently the ddx includes malignancy, infectious with an emphasis on viral hepatitis, or autoimmune etiology. Hgb mildly low. Acute Hep panel and PT/INR/PTT do not suggest present hepatitis. * Unclear etiology at this time * Consult gastroenterology appreciate recs * Preliminary results from paracentesis are nondiagnostic, awaiting culture and cytology with gram stain Pericardial effusion- Patient denies chest pain, shortness of breath, dyspnea on exertion or any other associated symptoms. Is also mild cardiac enlargement * Telemetry for serial cardiac enzymes * Serial EKG's * Cardiac rhythm monitoring and a 2-D echocardiogram with Doppler's. * Consult cardiology appreciate recs Leukocytosis/thrombocytosis- WBC 12.25, platelets 556 * Order peripheral smear Sed rate, SABRINA, peripheral smear, parvovirus, coxsackie B virus, tick panel pending Admission and Anticipated Discharge Date Admission Date: December 05, 2022 Supervising Physician Co-Signing Physician Notes I personally examined the patient and verified all colon points of history and exam, discussed case, and agree with decision making with Yocasta Langston MS4 and Dr Guillen Feeling okay. Paracentesis done, tolerated well, most detailed studies are still pending. Updated patient to the best my ability. Vitals noted, in general he is awake and alert pleasant no distress. HEENT normocephalic atraumatic mucous membranes moist. Breathing unlabored no accessory muscle use good effort. Skin shows no rashes no pallor or icterus. Neuro without focal deficits. Abdominal pain/loculated asciteswide differential, await further peritoneal studies. Fortunately stable. Cook Helper Juice input appreciated. DVT prophylaxisambulation Horacio Rodriguez is a 22 yo male with no previous medical issues who presented yesterday from [facility] after 2 weeks of abdominal discomfort. He states that he felt "stiffness" and mild pain over the last 2 weeks, worse in the beginning but persistent. He decided to come into [facility] simply because it had been going on for 2 weeks. He did state that he had very little appetite yesterday. He is on no medications. He has never been admitted to the hospital before and has only had knee surgery. 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 Per H&P he denies smoking, EtOH, or other substances. Today he reports that the stiffness is "feeling better than yesterday but still is there". His last BM was yesterday afternoon. He denies n/v/d/c, chest pain, sob, difficulties urinating, denied weight loss, fevers, chills, or night sweats. Review of Systems Constitutional: See HPI Eyes: Denied blurry vision Respiratory: Denied cough or shortness of breath. Cardiovascular: Additional Comments: Denied chest pain, palpitations Gastrointestinal: Denied nausea, vomiting, diarrhea, abdominal pain. Genitourinary: no dysuria, no difficulty urinating or no urinary frequency Physical Exam Constitutional: Alert and oriented x3 in hopsital bed Eyes: Pupils were equal, normal shape, and reactive. Neck: Respiratory: CTA, no increased work of breathing Cardiovascular: Normal rate and regular rhythm. No RMG auscultated on exam. Radial pulses equal b/l. Gastrointestinal (Abdomen): Distended, nontender, normoactive bowel sounds. Musculoskeletal: Upper extremity 5/5 strength Lower extremity 5/5 strength Skin: Warm dry, no apparent rashes. Psychiatric: Appropriate mood and affect. Lymphatic: No lymphadenopathy in the neck and cervical region. Results & Data Results & Data Vital Signs (Past 12 Hours) Vital Signs Temp Pulse Pulse Resp BP Pulse Ox O2 Del Method 12/06/22 15:35 87 12/06/22 15:22 36.9 C 89 20 134/81 96 Room Air 12/06/22 12:14 37.2 C 90 18 120/70 94 Room Air 12/06/22 11:44 37 C 95 H 18 118/68 95 Room Air 12/06/22 10:30 36.8 C 92 H 18 119/80 95 Room Air 12/06/22 11:30 37.5 C 83 20 121/66 94 Room Air 12/06/22 09:11 Room Air 12/06/22 07:42 36.9 C 80 20 125/77 95 Room Air 12/06/22 07:18 83 Laboratory Results 12/06/22 05:23 12/06/22 05:23 ESR: 32 (H) C reactive Protein: 12.29 (H) Diagnostic Findings Abdomen/Pelvis CT 12/05/22 17:25 CT ANGIOGRAM OF THE CHEST; CT SCAN OF THE ABDOMEN AND PELVIS WITH IV CONTRAST FINDINGS: CHEST: Thyroid: Imaged portions of the thyroid gland are normal in size and attenuation. Thoracic aorta: The thoracic aorta is normal in caliber and demonstrates standard 3-vessel arch anatomy. No dissection is seen. Pulmonary vasculature: The pulmonary trunk is normal in caliber. There are no filling defects identified in the main, lobar, or segmental pulmonary arteries to indicate pulmonary embolus. Heart: The heart is mildly enlarged noting a small to moderate pericardial effusion. Lungs and pleural spaces: There are trace pleural effusions with bibasilar atelectasis. There is no airspace consolidation typical for pneumonia. The trachea and central airways are clear. Mediastinum: There is no mediastinal lymphadenopathy. Diana: Clear. Axillae: There is no axillary lymphadenopathy. Bony thorax: No lytic or blastic lesions are identified. ABDOMEN AND PELVIS: Liver: The contrast-enhanced liver is normal in size, contour, and attenuation. There is no intrahepatic biliary ductal dilatation. The hepatic veins and portal veins are patent. Gallbladder: Unremarkable. Spleen: Normal in size and attenuation. Pancreas: Unremarkable. Adrenal glands: Unremarkable. Kidneys: The contrast enhanced kidneys are normal in size and without hydronephrosis. The kidneys enhance symmetrically. Abdominal vasculature: The abdominal aorta is normal in course and caliber. Stomach and bowel: There is a small hiatal hernia. There is no bowel obstruction. Residual enteric contrast is seen throughout the colon. The small bowel loops appear mildly thick walled. The appendix is normal as visualized. Peritoneum: There is a moderate volume of abdominopelvic ascites which appears at least partially loculated. There is mild associated peritoneal thickening. No intraperitoneal free air is seen. Lymphadenopathy: Mild enlargement cardiophrenic nodes measure up to 11 mm in short axis. No additional enlarged lymph nodes are seen in the abdomen or pelvis. Pelvic viscera: The bladder, prostate, and seminal vesicles are normal as visualized. Skeletal structures: No lytic or blastic lesions are seen. IMPRESSION: 1. There is no evidence of pulmonary embolus in the main, lobar, or segmental pulmonary arteries. 2. Mild cardiac enlargement noting a small to moderate pericardial effusion. 3. Trace pleural effusions. No airspace consolidation is seen typical for pneumonia. 4. There is a moderate volume of abdominopelvic ascites which appears to be at least partially loculated. There is associated peritoneal thickening. The etiology of this fluid is unclear, and the sterility of this fluid cannot be assessed by imaging. Correlate clinically. 5. The small bowel loops are mildly thick walled. This could be related to a nonspecific enteritis, hypoproteinemia, or possibly surrounding fluid/inflammation. Correlate clinically. 6. Additional findings as above. Chest CTA 12/05/22 17:25 CT ANGIOGRAM OF THE CHEST; CT SCAN OF THE ABDOMEN AND PELVIS WITH IV CONTRAST CLINICAL HISTORY: Atypical chest pain. Generalized abdominal pain. Elevated d-di tammy. COMPARISON STUDY: No priors. TECHNIQUE: Following the IV administration of of Optiray 320, CT angiogram of the chest is performed from the upper abdomen to the thoracic inlet utilizing the pulmonary embolus protocol. Images are reviewed in the axial, sagittal, coronal planes. 3-D MIPS images are created and assessed. Subsequently, CT scan of the abdomen and pelvis was performed from the lung bases to the proximal femora. Images are reviewed in the axial, sagittal, and coronal planes. IV contrast was administered without complication. A dose lowering technique was utilized adhering to the principles of ALARA. CT DOSE: 2323.64 mGy.cm FINDINGS: CHEST: Thyroid: Imaged portions of the thyroid gland are normal in size and attenuation. Thoracic aorta: The thoracic aorta is normal in caliber and demonstrates standard 3-vessel arch anatomy. No dissection is seen. Pulmonary vasculature: The pulmonary trunk is normal in caliber. There are no filling defects identified in the main, lobar, or segmental pulmonary arteries to indicate pulmonary embolus. Heart: The heart is mildly enlarged noting a small to moderate pericardial effusion. Lungs and pleural spaces: There are trace pleural effusions with bibasilar atelectasis. There is no airspace consolidation typical for pneumonia. The trachea and central airways are clear. Mediastinum: There is no mediastinal lymphadenopathy. Diana: Clear. Axillae: There is no axillary lymphadenopathy. Bony thorax: No lytic or blastic lesions are identified. ABDOMEN AND PELVIS: Liver: The contrast-enhanced liver is normal in size, contour, and attenuation. There is no intrahepatic biliary ductal dilatation. The hepatic veins and portal veins are patent. Gallbladder: Unremarkable. Spleen: Normal in size and attenuation. Pancreas: Unremarkable. Adrenal glands: Unremarkable. Kidneys: The contrast enhanced kidneys are normal in size and without hydronephrosis. The kidneys enhance symmetrically. Abdominal vasculature: The abdominal aorta is normal in course and caliber. Stomach and bowel: There is a small hiatal hernia. There is no bowel obstruction. Residual enteric contrast is seen throughout the colon. The small bowel loops appear mildly thick walled. The appendix is normal as visualized. Peritoneum: There is a moderate volume of abdominopelvic ascites which appears at least partially loculated. There is mild associated peritoneal thickening. No intraperitoneal free air is seen. Lymphadenopathy: Mild enlargement cardiophrenic nodes measure up to 11 mm in short axis. No additional enlarged lymph nodes are seen in the abdomen or pelvis. Pelvic viscera: The bladder, prostate, and seminal vesicles are normal as visualized. Skeletal structures: No lytic or blastic lesions are seen. IMPRESSION: 1. There is no evidence of pulmonary embolus in the main, lobar, or segmental pulmonary arteries. 2. Mild cardiac enlargement noting a small to moderate pericardial effusion. 3. Trace pleural effusions. No airspace consolidation is seen typical for pneumonia. 4. There is a moderate volume of abdominopelvic ascites which appears to be at least partially loculated. There is associated peritoneal thickening. The etiology of this fluid is unclear, and the sterility of this fluid cannot be assessed by imaging. Correlate clinically. 5. The small bowel loops are mildly thick walled. This could be related to a nonspecific enteritis, hypoproteinemia, or possibly surrounding fluid/inflammation. Correlate clinically. 6. Additional findings as above. Paracentesis Ultrasound 12/06/22 20:33 Ultrasound-guided diagnostic paracentesis INDICATION: Ascites PROCEDURE: Procedure and risks were explained. Informed consent was obtained. A final timeout was completed. The left abdomen was prepped and draped in sterile fashion. 1% buffered lidocaine was utilized for skin anesthesia. Utilizing ultrasound guidance, a 5 Nepalese safety centesis catheter was advanced into the pocket of ascites. Ultrasound images were obtained. 1 L was removed and sent to the lab for analysis. The catheter was removed and Band-Aid applied. The patient tolerated the procedure well. Vital signs will be monitored postprocedure. IMPRESSION: Ultrasound-guided paracentesis as above.
--- NOTE | 2022-12-06 09:30 | XCELERA ---
[id number]
--- NOTE | 2022-12-06 09:57 | Gastrointestinal Consultation ---
Date of Consultation December 06, 2022 Assessment & Plan (1) Abnormal computed tomography of abdomen and pelvis: (2) Abdominal ascites: Plan Clinical situation discussed with Dr. Méndez. Would advise obtaining a Celiac panel, initiate BID PPI therapy, await cardiac work-up, and await results of the fluid studies from the paracentesis ordered through IR. Further GI recommendations pending results of those tests. Infectious work-up ordered and pending per primary team (added syphilis r/o this AM) and it appears a rheumatologic work-up has been started as well. Supervising Physician Co-Signing Physician Notes Discussed with AUDREY Christine and agree with above He underwent Paracentesis today with removal of 1 L of fluid. SAAG 0.3, and less than 1.1, therefore no evidence of portal hypertension. He is tolerating PO intake. Abd: Soft, NT, ND, +BS Continue current therapy and supportive care Recommend Urine protein as fluid studies from paracentesis suggest Nephrotic syndrome. History of Present Illness Reason for Consultation: "Ascites & pain, ? etiology" Attending Physician: Lucien Gómez DO History of Present Illness Patient is a 22 yo male without significant PMH who presented to the ED at the request of the [facility] due to abdominal distention and abdominal discomfort that has been ongoing for 2 weeks. He denies nausea, vomiting, diarrhea, GI bleeding. As an outpatient, an elevated D dimer was obtained and prompted further evaluation at the ED. WBC count elevated at 11,[address] chest/abdomen/pelvis was obtained and noted mild cardiac enlargement with mild to moderate pericardial effusion, trace pleural effusions, moderate abdominopelvic ascites with loculation and peritoneal thickening, and a thick-walled small bowel suggestive of a possible enteritis vs hypoproteinemia vs inflammation. A cardiac work-up and IR paracentesis is pending at the time of this consult. No pertinent family history. Allergies Allergy/AdvReac Type Severity Reaction Status Date / Time No Known Allergies Allergy Unverified 12/05/22 18:49 Home Medications Medication Instructions Recorded Confirmed Type No Known Home Medications 12/05/22 12/05/22 History Patient History Medical History No pertinent past medical history Surgical History No pertinent past surgical history Social History Smoking Status: Never smoker Hx Alcohol Use: No Hx Substance Use: No Preferred Language: Fijian Communication Ability: Effective Napkin Machine Operator Required: No Beliefs That Will Affect Care: None Current Living Situation: Alone Other Information That Helps Us Care for You: No Feels Safe at Home: Yes Safety Concerns: Feels Safe At This Time Assistive Devices: None Review of Systems Constitutional: no fever and no chills Respiratory: no cough and no dyspnea Gastrointestinal: + abdominal pain Integumentary: no problem reported Psychiatric: no problem reported Hematologic / Lymphatic: no unexplained weight loss Physical Exam Constitutional: well developed Respiratory: normal respiratory effort Cardiovascular: Rate/Rhythm: regular rate Gastrointestinal (Abdomen): Percussion/Palpation: abdomen soft; abdomen nontender Musculoskeletal: Head/Neck/Chest: normocephalic Psychiatric: Orientation: alert and oriented x 3 Results & Data Vital Signs (Past 12 Hours) Vital Signs Temp Pulse Pulse Resp BP Pulse Ox O2 Del Method 12/06/22 09:11 Room Air 12/06/22 07:42 36.9 C 80 20 125/77 95 Room Air 12/06/22 07:18 83 12/06/22 03:00 36.8 C 86 20 116/74 95 Room Air 12/05/22 21:45 36.7 C 82 18 138/83 99 Room Air 12/05/22 21:52 92 H 12/05/22 21:45 36.7 C 82 18 138/83 99 Room Air PG Care Time/CCT Total # of Minutes Spent Total Time Spent with Patient: Total time spent is greater than 50% in coordination of care (as documented) at patient's floor/unit and/or counseling patient: Coding Level of Care Code 26924 IN/OBS CONSULT LVL 4,60M Diagnoses Abnormal computed tomography of abdomen and pelvis R93.5 Abdominal ascites R18.8
[2022-12-06] MEDS: PANTOprazole 40 MG in SYRINGE 0 ML IV SCH ×2 (10:02→19:54)
--- NOTE | 2022-12-06 11:52 | Cardiology Consultation ---
Date of Consultation December 06, 2022 Assessment & Plan (1) Pericardial effusion: -felt to be small to moderate in size by CT scan. -echocardiogram notes a trivial effusion at best. -of no clinical importance. -could consider a repeat echocardiogram in approximately 1 month. History of Present Illness Attending Physician: Lucien Gómez DO History of Present Illness Mr. Ibarra is a 22-year-old male admitted yesterday with abdominal discomfort. A CT scan of the chest noted a small to moderate pericardial effusion, and therefore, this consultation was ordered. The patient was in his usual state of health until approximately 2 weeks prior to presentation. He began to note a vague abdominal discomfort and eventually presented to [facility]. Blood work was performed which revealed an elevated D-dimer, and therefore, the patient was sent to the emergency room for further care. As part of his workup to rule out a pulmonary embolism, CT scan of the chest was performed. Fortunately, this showed no evidence of a pulmonary embolism or aortic dissection. However, name small to moderate pericardial effusion was noted. The patient has not had any recent viral illnesses. He has no history of cardiac disease. Currently, patient is resting comfortably in bed without complaints. 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 Allergies Allergy/AdvReac Type Severity Reaction Status Date / Time No Known Allergies Allergy Unverified 12/05/22 18:49 Home Medications Medication Instructions Recorded Confirmed Type No Known Home Medications 12/05/22 12/05/22 History Patient History Medical History No pertinent past medical history Surgical History No pertinent past surgical history Social History Smoking Status: Never smoker Hx Alcohol Use: No Hx Substance Use: No Preferred Language: Estonian Communication Ability: Effective Mortgage Loan Funder Required: No Beliefs That Will Affect Care: None Current Living Situation: Alone Other Information That Helps Us Care for You: No Feels Safe at Home: Yes Safety Concerns: Feels Safe At This Time Assistive Devices: None Physical Exam Physical Exam: In general this is a well-developed well-nourished white male in no acute distress. HEENT exam is negative. Neck is supple with full carotid upstrokes. There are no carotid bruits. Jugular venous pressure is flat at 90. There is no thyromegaly. Cardiovascular exam reveals a regular rhythm with a normal S1 and a physiologic split S2. No S3, S4, or murmurs are noted. Lungs are clear without rales, rhonchi, or wheezes. Abdomen is soft and nontender without bruits. Extremities reveal intact radial artery and posterior tibial pulses bilaterally. There is no peripheral edema. Results & Data Vital Signs (Past 12 Hours) Vital Signs Temp Pulse Pulse Resp BP Pulse Ox O2 Del Method 12/06/22 10:30 36.8 C 92 H 18 119/80 95 Room Air 12/06/22 11:30 37.5 C 83 20 121/66 94 Room Air 12/06/22 09:11 Room Air 12/06/22 07:42 36.9 C 80 20 125/77 95 Room Air 12/06/22 07:18 83 12/06/22 03:00 36.8 C 86 20 116/74 95 Room Air Laboratory Results CBC notes hemoglobin 13.5, crit 40.9, white count 11.9, and platelet count of [id number]. Electrolytes note a sodium 139, potassium 4.1, chloride 105, bicarb 27, BUN 9, creatinine 1.0, glucose of 92. Initial high sensitivity troponin was 3.0 with a follow-up value of 4.5. Diagnostic Findings Echocardiogram notes normal left ventricular systolic function with ejection fraction of 60-65%. There are no wall motion abnormalities. No valvular pathology. A trivial pericardial effusion is noted. PG Care Time/CCT Total # of Minutes Spent Total Time Spent with Patient: Total time spent is greater than 50% in coordination of care (as documented) at patient's floor/unit and/or counseling patient: Coding Level of Care Code 94404 IN/OBS CONSULT LVL 4,60M Diagnoses Pericardial effusion I31.39
[2022-12-06] MEDS: NSS + 20MEQ KCL 20 MEQ/1,000 ML BAG IV SCH (13:02)
[2022-12-06 13:09] LABS: Albumin Peritoneal Fluid 3.3 gm/dl
[2022-12-06 13:15] LABS: Total Protein Peritoneal Fluid 5.7 gm/dl
[2022-12-06 13:26] LABS: Appearance Peritoneal Fluid Hazy; Color Peritoneal Fluid Pale Yellow; RBC Peritoneal Fluid Auto < 2000 /uL; WBC Peritoneal Fluid Auto 245 /ul (0-300)
--- NOTE | 2022-12-06 13:36 | Electrocardiogram Report ---
Test Reason : Blood Pressure : / mmHG Vent. Rate : 102 BPM Atrial Rate : 102 BPM P-R Int : 162 ms QRS Dur : 086 ms QT Int : 326 ms P-R-T Axes : 023 004 024 degrees QTc Int : 424 ms Sinus tachycardia Otherwise normal ECG No previous ECGs available Confirmed by Doc Chamberlain ([id number]) on 12/06/2022 1:36:02 PM Referred By: [facility] Confirmed By:Doc Chamberlain
--- NOTE | 2022-12-06 13:56 | Ultrasound Report ---
Ultrasound-guided diagnostic paracentesis INDICATION: Ascites PROCEDURE: Procedure and risks were explained. Informed consent was obtained. A final timeout was com pleted. The left abdomen was prepped and draped in sterile fashion. 1% buffered lidocaine was utilize d for skin anesthesia. Utilizing ultrasound guidance, a 5 Serbian safety centesis catheter was advanced into the pocket of as mauricio. Ultrasound images were obtained. 1 L was removed and sent to the lab for analysis. The cathete r was removed and Band-Aid applied. The patient tolerated the procedure well. Vital signs will be mon itored postprocedure. IMPRESSION: Ultrasound-guided paracentesis as above. Performed, dictated, and signed by Josh Gustafson PA-C; to be co-signed by Dr. Luis Montes. Electronically signed by: Luis Montes M.D. 12/06/2022 2:04 PM
[2022-12-06 14:05] LABS: Basophils, Fluid 8 %; Eosinophils, Fluid 23 %; Lymphocytes, Fluid 18 %; Mono,Macrophage,Mesothelial 31 %; Neutrophils, Fluid 20 %
--- NOTE | 2022-12-06 16:55 | Billing Data ---
Date of Service December 06, 2022 Coding Level of Care Code 05512 SUB INP/OBS CARE MIN
[2022-12-06 19:59] LABS: Appearance Urine Clear (Clear); Bilirubin Urine Negative (Negative); Blood Urine Negative (Negative); Color Urine Yellow; Glucose Urine UA Negative (Negative); Ketones Urine 2+ (Negative); Leukocyte Esterase Urine Negative (Negative); Nitrite Urine Negative (Negative); Protein Urine Negative (Negative); Specific Gravity Urine 1.028 (1.000-1.030); Urobilinogen Urine Negative (Negative); pH Urine 5.5 (4.5-7.5)
[2022-12-07] MEDS: NSS + 20MEQ KCL 20 MEQ/1,000 ML BAG IV SCH ×2 (01:36→14:46)
--- NOTE | 2022-12-07 07:22 | Hospitalist Progress Note ---
Date of Service December 07, 2022 Assessment & Plan (1) Abdominal ascites: (2) Pericardial effusion: (3) Cardiac enlargement: (4) Thickened small bowel: Plan Abdominopelvic ascites/small bowel wall thickening- 3 episodes of diarrhea. Radiologic interpretation suggest possible nonspecific enteritis, hypoproteinemia or possibly surrounding fluid/inflammation. Awaiting full paracentesis report. Currently the ddx includes Malignancy: less likely with negative paracentesis, no obvious growth, no LN enlargment, no usual risk factors. Infectious with an emphasis on viral hepatitis: no present risk factors for hepatitis, viral panel is still pending. Autoimmune etiology: Elevated non specfic inflammatory markers, Hgb mildly low, SABRINA and IgA pending. * Unclear etiology at this time * Consult gastroenterology, appreciate recs * Paracentesis: Negative for malignancy, negative culture Pericardial effusion- Patient denies chest pain, shortness of breath, dyspnea on exertion or any other associated symptoms. Is also mild cardiac enlargement * Cardiology: Suggests Pericardial effusion of no clinical importance. * Echocardiogram: Normal Leukocytosis/thrombocytosis- WBC 12.25, platelets 556 * Peripheral Smear: No significant abnormalities. Sed rate, SABRINA, parvovirus, coxsackie B virus, tick panel pending Admission and Anticipated Discharge Date Admission Date: December 05, 2022 Supervising Physician Co-Signing Physician Notes I personally examined the patient and verified all colon points of history and exam, discussed case, and agree with decision making with Yocasta Langston MS4 Feeling okay. pain was a little worse overnight but back to better now. discussed with surgery - input greatly appreciated. Vitals noted, in general he is awake and alert pleasant no distress. HEENT normocephalic atraumatic mucous membranes moist. Breathing unlabored no accessory muscle use good effort. Skin shows no rashes no pallor or icterus. Neuro without focal deficits. abd soft nd mild periumbilical tenderness no epigastric tenderness no guarding no rebound Abdominal pain/loculated ascitesfortunately w/u fairly bland making active infection or malignancy far lower on ddx. ?previous viral infection with significant inflammation resulting in a lot of fluid now manifest as residual ascites? continue to follow closely. DVT prophylaxisambulation Subjective No acute events overnight. Today, he was feeling worse. He reports the pain yesterday was about a 2/10, last night it went up to about a 5/10, and is down to about a 4/10 this morning. He did not receive any pain medication last night. He also reports liquid stools yesterday through this morning. He reports that the pain is worse after he eats, therefore he is eating his breakfast slowly this morning. He denies any pain related to the area of paracentesis. Review of Systems Constitutional: Denied fever, night sweats, fatigue, weakness, dizziness Eyes: Denied blurry vision Respiratory: Denied cough or shortness of breath. Cardiovascular: Additional Comments: Denied chest pain, palpitations Gastrointestinal: Denied nausea, vomiting. Endorses diarrhea, abdominal pain. Genitourinary: no dysuria, no difficulty urinating or no urinary frequency Neurologic: Denied weaknesss, numbness, or tingling. Physical Exam Constitutional: Alert and oriented x3 in hopsital bed Neck: Respiratory: CTA, no increased work of breathing Cardiovascular: Normal rate and regular rhythm. S1 S2, no additional heart sounds auscultated. Radial pulses equal b/l. Capillary refill less than 2 sec. Gastrointestinal (Abdomen): Nondistended, nontender to palpation, normoactive bowel sounds. Musculoskeletal: Moves all extremeties independently Skin: Warm dry, no apparent rashed. Psychiatric: Appropriate mood and affect. Results & Data Results & Data Vital Signs (Past 12 Hours) Vital Signs Temp Pulse Pulse Resp BP Pulse Ox O2 Del Method 12/07/22 06:58 115 H 12/07/22 03:34 37.4 C 95 H 18 119/75 93 Room Air 12/06/22 23:33 98 H 12/06/22 23:33 37.7 C H 99 H 20 121/77 96 Room Air 12/06/22 19:52 37.2 C 92 H 20 126/83 92 Room Air Laboratory Results Peripheral Smear: "No significant morphologic abnormalities are seen. The overall findings are that of a non-specific leukocytosis (neutrophilia) and thrombocytosis. Red cells are noted to be microcytic by MCV. The findings could be seen with a wide variety of infectious and reactive processes. No organisms are identified. Overt changes of a neoplastic disorder are not evident."
[2022-12-07 07:30] LABS: Basophils # (auto) 0.07 K/uL (0-0.2); Basophils % (auto) 0.6 %; Eosinophils # (auto) 0.24 K/uL (0-0.50); Hematocrit (blood only) 41.3 % (42.0-52.0); Hemoglobin 13.6 g/dl (14.0-18.0); Immature Granulocytes # (auto) 0.08 K/uL (0.01-0.20); Immature Granulocytes % (auto) 0.7 %; Lymphocytes # (auto) 1.63 K/uL (1.2-3.4); Lymphocytes % (auto) 13.3 %; Mean Corpuscular Hemoglobin 24.9 pg (25.0-34.0); Mean Corpuscular Hgb Conc 32.9 g/dL (32.0-36.0); Mean Corpuscular Volume 75.5 fL (80.0-100.0); Mean Platelet Volume 8.9 fL (9.4-12.4); Monocytes # (auto) 0.99 K/uL (0.11-0.59); Monocytes % (auto) 8.1 %; Neutrophils # (auto) 9.21 K/uL (1.40-6.50); Neutrophils % (auto) 75.3 %; Platelet Count 480 K/uL (130-400); RDW Coefficient of Variation 13.3 % (11.5-14.5); RDW Standard Deviation 35.8 fL (36.4-46.3); Red Blood Count 5.47 M/uL (4.70-6.10); White Blood Count 12.22 K/ul (4.8-10.8)
[2022-12-07] MEDS: PANTOprazole 40 MG in SYRINGE 0 ML IV SCH ×2 (07:37→20:17)
[2022-12-07 07:39] LABS: Albumin Globulin Ratio 1.1 (0.9-2); Albumin Level 3.4 gm/dl (3.4-5.0); BUN Creatinine Ratio 12.2 (10-20); Bilirubin,Total 0.4 mg/dl (0.2-1.0); Calcium 8.4 mg/dl (8.6-10.3); Creatinine Clr Calc Pharmacy 149.2 ml/min; Globulin 3.2 gm/dl (2.5-4.0); Magnesium 2.1 mg/dl (1.7-2.4); Potassium 4.2 mmol/L (3.5-5.1); Total Protein 6.6 gm/dl (6.0-8.3)
--- NOTE | 2022-12-07 09:19 | Surgery Consultation ---
Date of Consultation December 07, 2022 Assessment & Plan (1) Abdominal ascites: This is a 22yM here from [facility] as a student, with no significant PMH who presents to the [facility] on 12/05/22 with 2 weeks of abdominal pain. This is associated with diarrhea. In our ER he underwent a CT chest/a/p showed a small to moderate pericardial effusion, trace pleural effusions, moderate volume of abdominopelvic ascites with associated peritoneal thickening. In addition it shows the small bowel loops are mildly thick walled, which could be related to a nonspecific enteritis, hypoproteinemia, or possibly surrounding fluid/inflammation. The patient reports his pain is always present and actually feels somewhat worse than when he came in a couple days ago. He ended up undergoing paracentesis on 12/06 and 1 L was removed. cytology negative for malignancy. gram stain/cultures no growth to date. cardiology obtained echo and only scant pericardial effusion noted. GI on board and sending off hepatitis and celiac studies. other studies such as tick borne, parvo, coxsackie all remain pending. May benefit from sending off stool studies. Unclear etiology, however fortunately no signs of malignancy from CT scan and paracentesis studies. no plans for surgical intervention from our standpoint. should await full workup of current labs pending. he will likely benefit from staying another night or two to see how he fairs. patient was seen/examined with dr. buchanan. Supervising Physician Co-Signing Physician Notes I discussed the case with the primary service yesterday at this time we will continue work-up including getting stool cultures as the patient has developed diarrhea No surgical intervention at this time is indicated but cannot be ruled out and symptoms persist and if no other noninvasive etiology is found for the symptoms History of Present Illness Attending Physician: Lucien Gómez, History of Present Illness This is a 22yM here from [facility] as a student, with no significant PMH who presents to the [facility] on 12/05/22 with 2 weeks of abdominal pain. Due to the longevity of the pain he went to [facility] for workup and was recommended to come to our ER for further evaluation. In our ER he underwent a CT chest/a/p showed a small to moderate pericardial effusion, trace pleural effusions, moderate volume of abdominopelvic ascites with associated peritoneal thickening. In addition it shows the small bowel loops are mildly thick walled, which could be related to a nonspecific enteritis, hypoproteinemia, or possibly surrounding fluid/inflammation. The patient reports his pain is always present and actually feels somewhat worse than when he came in a couple days ago. This is associated with some diarrhea. He denies any recent travel out of the country. Was in [place] about 1 month ago. He denies eating anything out of the ordinary. Denies fevers/chills, nausea/vomiting, rashes, myalgias, heart issues or family history of heart issues. No recent weight gain He ended up undergoing paracentesis on 12/06 and 1 L was removed. cytology negative for malignancy. gram stain/cultures no growth to date. 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 Beliefs That Will Affect Care: None Current Living Situation: Alone Other Information That Helps Us Care for You: No Feels Safe at Home: Yes Safety Concerns: Feels Safe At This Time Assistive Devices: None Review of Systems Constitutional: no fever, no chills and no malaise Respiratory: no dyspnea Cardiovascular: no chest pain Additional Comments: no family or personal cardiac history he is aware of Gastrointestinal: + abdominal pain (vague, diffuse, mildly worse in mid L side) and + diarrhea/loose stools; no nausea and no vomiting Genitourinary: no problem reported Musculoskeletal: no myalgia Integumentary: no rashes Physical Exam Physical Exam: awake/alert Constitutional: well developed, well nourished and comfortable; no acute distress and not ill appearing Respiratory: normal respiratory effort Cardiovascular: Rate/Rhythm: regular rhythm Gastrointestinal (Abdomen): Inspection/Auscultation: + abdomen distended (mild) Percussion/Palpation: + abdomen tender (discomfort to palpation in R mid abdomen and L mid abdomen) and abdomen soft Results & Data Vital Signs (Past 12 Hours) Vital Signs Temp Pulse Pulse Resp BP Pulse Ox O2 Del Method 12/07/22 07:30 Room Air 12/07/22 07:25 36.7 C 94 H 18 130/83 93 Room Air 12/07/22 06:58 115 H 12/07/22 03:34 37.4 C 95 H 18 119/75 93 Room Air 12/06/22 23:33 98 H 12/06/22 23:33 37.7 C H 99 H 20 121/77 96 Room Air Diagnostic Findings CT ANGIOGRAM OF THE CHEST; CT SCAN OF THE ABDOMEN AND PELVIS WITH IV CONTRAST CLINICAL HISTORY: Atypical chest pain. Generalized abdominal pain. Elevated d- dimer. COMPARISON STUDY: No priors. TECHNIQUE: Following the IV administration of of Optiray 320, CT angiogram of the chest is performed from the upper abdomen to the thoracic inlet utilizing the pulmonary embolus protocol. Images are reviewed in the axial, sagittal, coronal planes. 3-D MIPS images are created and assessed. Subsequently, CT scan of the abdomen and pelvis was performed from the lung bases to the proximal femora. Images are reviewed in the axial, sagittal, and coronal planes. IV contrast was administered without complication. A dose lowering technique was utilized adhering to the principles of ALARA. CT DOSE: 2323.64 mGy.cm FINDINGS: CHEST: Thyroid: Imaged portions of the thyroid gland are normal in size and attenuation. Thoracic aorta: The thoracic aorta is normal in caliber and demonstrates standard 3-vessel arch anatomy. No dissection is seen. Pulmonary vasculature: The pulmonary trunk is normal in caliber. There are no filling defects identified in the main, lobar, or segmental pulmonary arteries to indicate pulmonary embolus. Heart: The heart is mildly enlarged noting a small to moderate pericardial effusion. Lungs and pleural spaces: There are trace pleural effusions with bibasilar atelectasis. There is no airspace consolidation typical for pneumonia. The trachea and central airways are clear. Mediastinum: There is no mediastinal lymphadenopathy. Diana: Clear. Axillae: There is no axillary lymphadenopathy. Bony thorax: No lytic or blastic lesions are identified. ABDOMEN AND PELVIS: Liver: The contrast-enhanced liver is normal in size, contour, and attenuation. There is no intrahepatic biliary ductal dilatation. The hepatic veins and portal veins are patent. Gallbladder: Unremarkable. Spleen: Normal in size and attenuation. Pancreas: Unremarkable. Adrenal glands: Unremarkable. Kidneys: The contrast enhanced kidneys are normal in size and without hydronephrosis. The kidneys enhance symmetrically. Abdominal vasculature: The abdominal aorta is normal in course and caliber. Stomach and bowel: There is a small hiatal hernia. There is no bowel obstruction. Residual enteric contrast is seen throughout the colon. The small bowel loops appear mildly thick walled. The appendix is normal as visualized. Peritoneum: There is a moderate volume of abdominopelvic ascites which appears at least partially loculated. There is mild associated peritoneal thickening. No intraperitoneal free air is seen. Lymphadenopathy: Mild enlargement cardiophrenic nodes measure up to 11 mm in short axis. No additional enlarged lymph nodes are seen in the abdomen or pelvis. Pelvic viscera: The bladder, prostate, and seminal vesicles are normal as visualized. Skeletal structures: No lytic or blastic lesions are seen. IMPRESSION: 1. There is no evidence of pulmonary embolus in the main, lobar, or segmental pulmonary arteries. 2. Mild cardiac enlargement noting a small to moderate pericardial effusion. 3. Trace pleural effusions. No airspace consolidation is seen typical for pn eumonia. 4. There is a moderate volume of abdominopelvic ascites which appears to be at least partially loculated. There is associated peritoneal thickening. The etiology of this fluid is unclear, and the sterility of this fluid cannot be assessed by imaging. Correlate clinically. 5. The small bowel loops are mildly thick walled. This could be related to a nonspecific enteritis, hypoproteinemia, or possibly surrounding fluid/inflammation. Correlate clinically. 6. Additional findings as above. ACT 112: Negative or not required by law Electronically signed by: Rob Buitrago M.D. 12/05/2022 6:50 PM PG Care Time/CCT Total # of Minutes Spent Total Time Spent with Patient: Total time spent is greater than 50% in coordination of care (as documented) at patient's floor/unit and/or counseling patient: Coding Level of Care Code 30251 IN/OBS CONSULT LVL 3,45M Diagnoses Abdominal ascites R18.8
--- NOTE | 2022-12-07 13:55 | Billing Data ---
Date of Service December 07, 2022 Coding Level of Care Code 45850 SUB INP/OBS CARE MIN
[2022-12-07] MEDS ORDERED: ACETAMINOPHEN 325 MG TAB PO PRN (14:04)
[2022-12-07] MEDS ORDERED: IBUPROFEN 200 MG TAB PO PRN (14:04)
[2022-12-07 22:06] LABS: Adenovirus F 40/41 PCR Not Detected (NotDetected); Astrovirus PCR Not Detected (NotDetected); Campylobacter PCR Not Detected (NotDetected); Cryptosporidium PCR Not Detected (NotDetected); Cyclospora cayetanensis PCR Not Detected (NotDetected); Entamoeba histolytica PCR Not Detected (NotDetected); Enteroaggregative E.coli(EAEC) Not Detected (NotDetected); Enteropathogenic E.coli (EPEC) Not Detected (NotDetected); Enterotoxigenic E.coli (ETEC) Not Detected (NotDetected); Giardia lamblia PCR Not Detected (NotDetected); Norovirus GI/GII PCR Not Detected (NotDetected); Plesiomonas shigelloides PCR Not Detected (NotDetected); Rotavirus A PCR Not Detected (NotDetected); Salmonella PCR Not Detected (NotDetected); Sapovirus PCR Not Detected (NotDetected); Shiga-like Toxin E.coli (STEC) Not Detected (NotDetected); Shigella/Enteroinvasive E.coli Not Detected (NotDetected); Vibrio cholerae PCR Not Detected (NotDetected); Vibrio species PCR Not Detected (NotDetected); Yersinia enterocolitica PCR Not Detected (NotDetected)
[2022-12-08] MEDS: NSS + 20MEQ KCL 20 MEQ/1,000 ML BAG IV SCH ×2 (03:16→15:42)
--- NOTE | 2022-12-08 07:37 | Surgery Progress Note ---
Date of Service December 08, 2022 Assessment & Plan (1) Abdominal ascites: Plan: 12/08/22 Within the last 24 hours the patient has developed emesis and diarrhea that he had is turned into it coffee ground color the abdominal exam is virtually unchanged on the palpation some tenderness elicited today Discussed the case with Dr. Gómez I feel the patient should be transferred to a tertiary center at this point not having found a clear etiology chemically or radiographically and with the clinical picture slightly deteriorating the patient may need and most likely needs surgery but since this is a very unusual case he would be best served there where there are more resources available This is a 22yM here from [facility] as a student, with no significant PMH who presents to the [facility] on 12/05/22 with 2 weeks of abdominal pain. This is associated with diarrhea. In our ER he underwent a CT chest/a/p showed a small to moderate pericardial effusion, trace pleural effusions, moderate volume of abdominopelvic ascites with associated peritoneal thickening. In addition it shows the small bowel loops are mildly thick walled, which could be related to a nonspecific enteritis, hypoproteinemia, or possibly surrounding fluid/inflammation. The patient reports his pain is always present and actually feels somewhat worse than when he came in a couple days ago. He ended up undergoing paracentesis on 12/06 and 1 L was removed. cytology negative for malignancy. gram stain/cultures no growth to date. cardiology obtained echo and only scant pericardial effusion noted. GI on board and sending off hepatitis and celiac studies. other studies such as tick borne, parvo, coxsackie all remain pending. May benefit from sending off stool studies. Unclear etiology, however fortunately no signs of malignancy from CT scan and paracentesis studies. no plans for surgical intervention from our standpoint. should await full workup of current labs pending. he will likely benefit from staying another night or two to see how he fairs. patient was seen/examined with dr. buchanan. Admission and Anticipated Discharge Date Admission Date: December 05, 2022 Subjective Feels about the same although he did have 1 episode of vomiting and has had more diarrhea dark color in nature The pain is pretty much the same Physical Exam Physical Exam: Is alert coherent sclera nonicteric The abdomen remains distended with some guarding and supraumbilical emiliana umbilical area but on deep palpation some tenderness elicited that area There is no pedal edema Results & Data Vital Signs (Past 12 Hours) Vital Signs Temp Pulse Pulse Resp BP Pulse Ox O2 Del Method 12/08/22 07:10 83 12/08/22 04:12 36.7 C 87 18 114/72 94 Room Air 12/07/22 23:15 104 H 12/07/22 23:07 37.4 C 101 H 18 126/77 95 Room Air
[2022-12-08 07:40] LABS: Basophils # (auto) 0.05 K/uL (0-0.2); Basophils % (auto) 0.4 %; Eosinophils # (auto) 0.31 K/uL (0-0.50); Eosinophils % (auto) 2.5 %; Hematocrit (blood only) 38.1 % (42.0-52.0); Hemoglobin 12.7 g/dl (14.0-18.0); Immature Granulocytes # (auto) 0.05 K/uL (0.01-0.20); Immature Granulocytes % (auto) 0.4 %; Lymphocytes # (auto) 1.46 K/uL (1.2-3.4); Lymphocytes % (auto) 11.9 %; Mean Corpuscular Hemoglobin 25.1 pg (25.0-34.0); Mean Corpuscular Hgb Conc 33.3 g/dL (32.0-36.0); Mean Corpuscular Volume 75.4 fL (80.0-100.0); Monocytes % (auto) 8.1 %; Neutrophils # (auto) 9.41 K/uL (1.40-6.50); Neutrophils % (auto) 76.7 %; Platelet Count 440 K/uL (130-400); RDW Coefficient of Variation 13.4 % (11.5-14.5); RDW Standard Deviation 36.1 fL (36.4-46.3); Red Blood Count 5.05 M/uL (4.70-6.10); White Blood Count 12.28 K/ul (4.8-10.8)
[2022-12-08 07:54] LABS: Albumin Level 3.2 gm/dl (3.4-5.0); BUN Creatinine Ratio 10.5 (10-20); Bilirubin,Total 0.4 mg/dl (0.2-1.0); Calcium 8.4 mg/dl (8.6-10.3); Creatinine Clr Calc Pharmacy 157.8 ml/min; Est GFR (African American) 141.7 ml/min; Est GFR (Non-African American) 122.2 ml/min; Globulin 3.1 gm/dl (2.5-4.0); Magnesium 2.1 mg/dl (1.7-2.4); Potassium 4.3 mmol/L (3.5-5.1); Total Protein 6.3 gm/dl (6.0-8.3)
[2022-12-08] MEDS: PANTOprazole 40 MG in SYRINGE 0 ML IV SCH (09:00)
[2022-12-08] MEDS ORDERED: PIPERACILLIN/TAZOBACTAM 4.5 GM in DEXTROSE 5% 100 ML IV ONE (13:00)
--- NOTE | 2022-12-08 15:36 | Discharge Summary ---
Date of Service December 08, 2022 Admission HPI Per Admitting Provider The patient is a 22-year-old [place] male with no significant past medical history who has been setting at [facility] for 6 months. He presented to the [facility] there due to abdominal pain that been persistent for the past 2 weeks, and figured it was finally time to get it checked out. He has no other associated symptomatology such as nausea, vomiting or diarrhea. He denies any alcohol or drug use. He had laboratory work done there that included an elevated D-dimer, and was thus referred to the emergency department for assessment for possible blood clots. Significant laboratories: WBC 12.25, hemoglobin 14.6, hematocrit 44.[address] angiography of chest along with CT abdomen the pelvis: Small to moderate- sized pericardial effusion. Moderate ascites that may be partially loculated. Nonspecific enteritis. Admission Exam Per Admitting Provider The patient is awake, alert and oriented 3, well developed and well nourished, normocephalic and atraumatic, lying in bed and in no acute distress. HEENT--PERRL, EOMI, mucous membranes and oropharynx normal. Neck--supple. No JVD. No bruits. Thyroid normal, trachea midline, no adenopathy. Heart--normal S1 and S2. No murmurs, rubs or gallops. Lungs--clear bilaterally, no respiratory distress, no accessory muscle use. Abdomen--normal bowel sounds and soft. Nontender. Nondistended. Obese Extremities--no cyanosis or clubbing. No edema. There are good distal pulses b/l. Dermatologic--normal skin turgor, normal color, no abnormal lymph nodes, no rash. Neurologic--cranial nerves II through XII grossly intact. Rheumatologic--normal range of motion. Psychiatric--normal affect. Principal Diagnosis Abdominal pelvic ascites Discharge Exam General: No acute distress HEENT: PERRLA. Normal conjunctiva, anicteric sclera. Oropharynx normal. Respiratory: Normal respiratory effort, CTABL. Cardiovascular: RRR without murmurs, gallops, or rubs. No pedal edema. GI: Soft abdomen with normal bowel sounds heard on auscultation. Suprapubic tenderness to moderate palpation. Neuro: Alert and oriented x3. 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 Admitted for management of loculated abdominal pelvic ascites with associated peritoneal thickening and small bowel wall thickness. Now awaiting transfer for possible exploratory laparoscopy at [facility]. Abdominal ascites -Moderate abdominal pelvic ascites, associated peritoneal thickening on CT A/P. -Enteric stool PCR panel negative. No growth on sample obtained for culture during paracentesis. -Persistent leukocytosis (11.9-12.28), thrombocytosis. CRP elevated at 17.05. LFTs, transaminases within normal limits. -Surgery consulted. Recommended transfer to tertiary facility due to concern for potential bowel ischemia, unusual presentation that portends surgical complexity necessitating additional surgical support. * Patient accepted at [facility] with bed. Paperwork completed. Awaiting transport. Family notified and apprised of condition. * Started on IV Zosyn every 8 hours * IV Protonix 40 mg twice daily * IV Zofran 4 mg every 6 hours as needed for nausea Total Time Total Time Spent Total Time Spent (In Minutes): <30 Discharge Plan Discharge Items Patient Disposition: Transfer Acute Care Hospital Reason For Visit: LEUKOCYTOSIS, THROMBOCYTOSIS, PERICARDIAL EFFUSION Discharge Diagnosis: Abdominal ascites Condition on Discharge: Good Activity: Per Instructions section Non-emergency contact: Primary Care Provider and Surgeon Call non-emergency contact if: you have any medication questions and you have a fever Follow-up/Referrals: 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 Admitted for management of loculated abdominal pelvic ascites with associated peritoneal thickening and small bowel wall thickness. Now awaiting transfer for possible exploratory laparoscopy at [facility]. Abdominal ascites -Moderate abdominal pelvic ascites, associated peritoneal thickening on CT A/P. -Enteric stool PCR panel negative. No growth on sample obtained for culture during paracentesis. -Persistent leukocytosis (11.9-12.28), thrombocytosis. CRP elevated at 17.05. LFTs, transaminases within normal limits. -Surgery consulted. Recommended transfer to tertiary facility due to concern for potential bowel ischemia, unusual presentation that portends surgical complexity necessitating additional surgical support. * Patient accepted at [facility] with bed. Paperwork completed. Awaiting transport. Family notified and apprised of condition. * Started on IV Zosyn every 8 hours * IV Protonix 40 mg twice daily * IV Zofran 4 mg every 6 hours as needed for nausea Pending Studies at Discharge: No Stand-Alone Forms: [facility] Skilled Items Patient informed of condition?: Yes DNR: No Discharge Level of Care: Other Communicable Disease: No Discharge Prognosis: Stable Lines: None Urinary Catheter: No Medications and DC Order Prescriptions: No Action No Known Home Medications Discharge Orders: Discharge Order (Routine); Ordered 12/08/22 Ordered By: Eliseo Neville Admission Data Admit Date/Time: 12/05/22 20:33 Attending Provider: Lucien Gómez Admit Provider: hBargav Vieira Primary Care Provider: [facility] Other Providers: Doc Chamberlain ; Bhargav Vieira ; Carmine Méndez ; Carlos Benoit Other Interventions: Discharge Summary Assessment (RN) Last Done: 12/08/22 16:30 Supervising Physician Co-Signing Physician Notes I personally examined the patient and verified all colon points of history and exam, discussed case, and agree with decision making with Dr Neville surgical input appreciated - [facility]. Vitals noted, in general he is awake and alert pleasant no distress. HEENT normocephalic atraumatic mucous membranes moist. Breathing unlabored no accessory muscle use good effort. Skin shows no rashes no pallor or icterus. Neuro without focal deficits. abd soft nd mild periumbilical tenderness no epigastric tenderness no guarding no rebound Abdominal pain/loculated ascitesstill nonspecific, but with darker stools and somewhat worsening painsurgery concerned about small bowel ischemiacertainly that could fit with nondescript bowel inflammation on CT scan as well as his clinical picture somewhat fitting for "pain out of proportion to exam"for now initiated empiric Zosyn, transfer, surgical evaluation where there are more services and backup available DVT prophylaxisambulation Resident Activity Tracking Resident Involvement: Resident Care Provided Care Provided: Adult Hospital Medicine
--- NOTE | 2022-12-08 17:59 | Billing Data ---
Date of Service December 08, 2022 Coding Level of Care Code 79952 IN/OBS DISCH 30 MIN/LESS
[2022-12-08] MEDS ORDERED: PIPERACILLIN/TAZOBACTAM 4.5 GM in DEXTROSE 5% 100 ML IV SCH (18:00)
[2022-12-11 03:53] LABS: IgA Serum 208 mg/dL (47-310); Tis Trans IgA <1.0 U/mL
== END 2022-12-08 16:33 | disposition short-term general hospital (02) | DRG 948 ==
LOC: ED 16:42 → 2N 20:33 → SUATTDRO 20:33 → 2N 21:41

== ENCOUNTER 2023-01-13 17:13 | Inpatient (IN) ==
--- NOTE | 2023-01-13 17:36 | Emergency Department Note ---
History of Present Illness General Chief complaint: Wound Stated complaint: PREVIOUS SURGERY, WOUND, POSSIBLE INFECTION Time Seen by Provider: 01/13/23 17:22 History of Present Illness Maximum Pain Intensity: 2 This is a 22-year-old male that presents to the emergency department via private vehicle with complaints of "previous surgery, wound, possible infection". The patient notes that earlier this month on December 18 he underwent lymph node surgery (biopsy) to the right inguinal region at [facility]. This was after admission here to the hospital at [facility] Patient notes that he had a total of 6 L of fluid from the abdomen removed, underwent abdominal laparoscopic surgery and ultimately notes that he had lymph node removal to the right groin region. He notes that testing overall has been inconclusive but did have elevated calprotectin and is awaiting colonoscopy. Patient denies any fevers but does note as of yesterday he started with some swelling, pain and redness to the right inguinal region where the surgical incision is from the lymph node biopsy. He notes that it has progressively worsened prompting arrival here today. No fevers. Home Medications Medication Instructions Recorded Confirmed Type colchicine 0.6 mg tablet 0.6 mg PO DAILY 01/13/23 01/13/23 History ibuprofen 200 mg tablet See Rx Instructions .Route .COMPLEX 01/13/23 01/13/23 History omeprazole 20 mg capsule,delayed 20 mg PO DAILY 01/13/23 01/13/23 History release Allergies Allergy/AdvReac Type Severity Reaction Status Date / Time perflutren AdvReac Intermediate TACHYCARDIA--PERFLUTEN Verified 01/13/23 18:09 LIPID MICROSPHERES Past Med/Surg History Medical History (Updated 01/14/23 @ 00:39 by Kirby Urbano PA-C) Hx of ascites Hx of pleural effusion Surgical History (Updated 01/14/23 @ 00:46 by Kirby Urbano PA-C) History of lymph node biopsy Hx of laparoscopy Social History Smoking Status: Never smoker Hx Alcohol Use: No Hx Substance Use: No Preferred Language: Serbian Communication Ability: Effective Oxygen Equipment Technician Required: No Beliefs That Will Affect Care: None Current Living Situation: Alone Feels Safe at Home: Yes Assistive Devices: None Review of Systems A total of 10 systems reviewed and were otherwise negative Physical Exam Vital Signs Vital Signs - 24 hr 01/13/23 17:19 01/13/23 18:53 01/13/23 20:03 Temperature 36.5 C Temperature Source Oral Pulse Rate 84 Pulse Rate [Right Finger] 95 H 73 Respiratory Rate 18 17 17 Respiratory Effort / Characteristics Non-Labored Spontaneous Respiratory Depth Normal Normal Normal Respiratory Pattern Regular Blood Pressure 126/82 Blood Pressure [Right Arm] 140/81 135/81 Blood Pressure Mean 96 Blood Pressure Mean [Right Arm] 100 99 Blood Pressure Position Sitting Pulse Oximetry 98 98 99 Oxygen Delivery Method Room Air Room Air Sepsis Recent Fever Within 48 Hours No Sepsis New/Unexplained Change in Mental Status No Sepsis Action Taken by Nursing No Action Required 01/13/23 21:33 Temperature Temperature Source Pulse Rate Pulse Rate [Right Finger] 80 Respiratory Rate 16 Respiratory Effort / Characteristics Respiratory Depth Normal Respiratory Pattern Blood Pressure Blood Pressure [Right Arm] 132/72 Blood Pressure Mean Blood Pressure Mean [Right Arm] 92 Blood Pressure Position Pulse Oximetry 98 Oxygen Delivery Method Room Air Sepsis Recent Fever Within 48 Hours Sepsis New/Unexplained Change in Mental Status Sepsis Action Taken by Nursing VITAL SIGNS - Vital signs and triage nursing notes were reviewed. Stable and afebrile. GENERAL -22-year-old male appearing his stated age who is in no acute distress. Communicates well with provider and answers questions appropriately. SKIN -well-healed incision from laparoscopic ports to the abdomen. Right inguinal region with a linear surgical wound that is not dehisced but there is a large amount of surrounding erythema, edema and indurated tissue tracking into the abdominal region and suprapubic region. HEAD - NC/AT. EYES - Sclera anicteric. LUNGS - Chest wall symmetric without accessory muscle use, intercostals retractions, or central cyanosis. Normal vesicular breath sounds CTA B/L. No wheezes, rales, or rhonchi appreciated. CARDIAC - RRR with S1/S2. No murmur, rubs, or gallops appreciated. ABDOMEN - Abdominal contour normal without pulsations or visible masses. BS normoactive all four quadrants. No tenderness, palpable masses, hepatosplenomegaly, or ascites noted. EXTREMITIES - No clubbing or peripheral cyanosis. +5/5 strength noted in UE/LE bilaterally. NEUROLOGIC - Cranial nerves II through XII grossly intact. GUconsent was obtained. Right inguinal region with skin as above with some tenderness to palpation noted. There is no drainage but the area appears moist. PSYCH - A&Ox3 and cooperates fully with examiner. Pt is very pleasant and interacts well with examiner. Course Administered Medications Sodium Chloride (Nss 1000ml) 1,000 mls @ 125 mls/hr IV .Q8H DINORAH Stop: 02/13/23 00:06 Last Admin: 01/14/23 00:24 Dose: 125 mls/hr Documented By: KS Discontinued Medications Colchicine (Colchicine 0.6 Mg Tab) 0.3 mg PO NOW STA Stop: 01/13/23 23:07 Last Admin: 01/13/23 23:14 Dose: 0.3 mg Documented By: ARY Cefepime HCl (Maxipime) 2,000 mg in 20 mls @ 5 mls/min IV NOW STA; Protocol Stop: 01/13/23 21:05 Last Admin: 01/13/23 21:15 Dose: 5 mls/min Documented By: SUKHI Daptomycin 325 mg/ Syringe 6.5 mls @ 3.25 mls/min IV NOW STA; Protocol Stop: 01/13/23 21:03 Last Admin: 01/13/23 21:29 Dose: 3.25 mls/min Documented By: SUKHI Ibuprofen (Ibuprofen 600 Mg Tab) 600 mg PO NOW STA Stop: 01/13/23 23:01 Last Admin: 01/13/23 23:14 Dose: 600 mg Documented By: ARY Ioversol (Optiray 320 100ml) 93 ml IV ONCE ONE Stop: 01/13/23 18:49 Last Admin: 01/13/23 18:48 Dose: 93 ml Documented By: RAHUL Medical Decision Making Laboratory Data 01/13/23 17:42 01/13/23 17:42 Lab Results 01/13/23 01/13/23 01/13/23 Range/Units 17:42 17:42 17:42 WBC 8.39 (4.8-10.8) K/ul RBC 4.92 (4.70-6.10) M/uL Hgb 12.5 L (14.0-18.0) g/dl Hct 38.9 L (42.0-52.0) % MCV 79.1 L (80.0-100.0) fL MCH 25.4 (25.0-34.0) pg MCHC 32.1 (32.0-36.0) g/dL RDW Std Deviation 43.5 (36.4-46.3) fL RDW Coeff of Ivan 15.2 H (11.5-14.5) % Plt Count 351 (130-400) K/uL MPV 9.4 (9.4-12.4) fL Immature Gran % (Auto) 0.5 % Neut % (Auto) 65.9 % Lymph % (Auto) 17.3 % [place] % (Auto) 9.4 % Eos % (Auto) 6.1 % Baso % (Auto) 0.8 % Neut # (Auto) 5.53 (1.40-6.50) K/uL Lymph # (Auto) 1.45 (1.2-3.4) K/uL [place] # (Auto) 0.79 H (0.11-0.59) K/uL Eos # (Auto) 0.51 H (0-0.50) K/uL Baso # (Auto) 0.07 (0-0.2) K/uL Immature Gran # (Auto) 0.04 (0.01-0.20) K/uL Sodium 140 (136-145) mmol/L Potassium 3.7 (3.5-5.1) mmol/L Chloride 106 (98-107) mmol/L Carbon Dioxide 25 (21-32) mmol/L Anion Gap 9 (3-11) BUN 6 (6-23) mg/dl Creatinine 0.74 (0.6-1.4) mg/dl Est Cr Clr Drug Dosing 177.9 ml/min Est GFR ( Amer) > 150.0 ml/min Est GFR (Non-Af Amer) 130.0 ml/min BUN/Creatinine Ratio 8.1 L (10-20) Glucose 92 (70-99(Fasting)) mg/dl Lactate (0.4-2.0) mmol/L Calcium 9.0 (8.6-10.3) mg/dl Total Bilirubin 0.3 (0.2-1.0) mg/dl AST 22 (13-39) U/L ALT 37 (7-52) U/L Alkaline Phosphatase 104 (34-104) U/L Total Protein 8.0 (6.0-8.3) gm/dl Albumin 4.2 (3.4-5.0) gm/dl Globulin 3.8 (2.5-4.0) gm/dl Albumin/Globulin Ratio 1.1 (0.9-2) Procalcitonin < 0.05 (0-0.5) ng/ml Urine Color Urine Appearance (Clear) Urine pH (4.5-7.5) Ur Specific [place] (1.000-1.030) Urine Protein (Negative) Urine Glucose (UA) (Negative) Urine Ketones (Negative) Urine Blood (Negative) Urine Nitrite (Negative) Urine Bilirubin (Negative) Urine Urobilinogen (Negative) Ur Leukocyte Esterase (Negative) Nasal Screen MRSA (PCR) (Negative) 01/13/23 01/13/23 01/13/23 Range/Units 17:42 18:45 21:36 WBC (4.8-10.8) K/ul RBC (4.70-6.10) M/uL Hgb (14.0-18.0) g/dl Hct (42.0-52.0) % MCV (80.0-100.0) fL MCH (25.0-34.0) pg MCHC (32.0-36.0) g/dL RDW Std Deviation (36.4-46.3) fL RDW Coeff of Ivan (11.5-14.5) % Plt Count (130-400) K/uL MPV (9.4-12.4) fL Immature Gran % (Auto) % Neut % (Auto) % Lymph % (Auto) % [place] % (Auto) % Eos % (Auto) % Baso % (Auto) % Neut # (Auto) (1.40-6.50) K/uL Lymph # (Auto) (1.2-3.4) K/uL [place] # (Auto) (0.11-0.59) K/uL Eos # (Auto) (0-0.50) K/uL Baso # (Auto) (0-0.2) K/uL Immature Gran # (Auto) (0.01-0.20) K/uL Sodium (136-145) mmol/L Potassium (3.5-5.1) mmol/L Chloride (98-107) mmol/L Carbon Dioxide (21-32) mmol/L Anion Gap (3-11) BUN (6-23) mg/dl Creatinine (0.6-1.4) mg/dl Est Cr Clr Drug Dosing ml/min Est GFR ( Amer) ml/min Est GFR (Non-Af Amer) ml/min BUN/Creatinine Ratio (10-20) Glucose (70-99(Fasting)) mg/dl Lactate 1.4 (0.4-2.0) mmol/L Calcium (8.6-10.3) mg/dl Total Bilirubin (0.2-1.0) mg/dl AST (13-39) U/L ALT (7-52) U/L Alkaline Phosphatase (34-104) U/L Total Protein (6.0-8.3) gm/dl Albumin (3.4-5.0) gm/dl Globulin (2.5-4.0) gm/dl Albumin/Globulin Ratio (0.9-2) Procalcitonin (0-0.5) ng/ml Urine Color Yellow Urine Appearance Clear (Clear) Urine pH 5.5 (4.5-7.5) Ur Specific [place] 1.009 (1.000-1.030) Urine Protein Negative (Negative) Urine Glucose (UA) Negative (Negative) Urine Ketones Negative (Negative) Urine Blood Negative (Negative) Urine Nitrite Negative (Negative) Urine Bilirubin Negative (Negative) Urine Urobilinogen Negative (Negative) Ur Leukocyte Esterase Negative (Negative) Nasal Screen MRSA (PCR) Negative (Negative) Imaging Data Radiologist's Impression: Abdomen/Pelvis CT 01/13/23 17:[address] WITH IV CONTRAST CT DOSE: 1507.39 mGy.cm HISTORY: s/p R inguinal surgery, now edema, erythema TECHNIQUE: Multiaxial CT images of the abdomen and pelvis were performed following the use of intravenous contrast. A dose lowering technique was utilized adhering to the principles of ALARA. COMPARISON STUDY: Abdomen and pelvis CT 12/05/2022. FINDINGS: Scattered small peripheral densities within the lung bases and a right middle lobe patchy density are similar to the prior study. This could represent areas of scarring or atelectasis. No pneumoperitoneum. No pneumatosis. No acute fractures identified. Trace pericardial effusion has improved. Skin thickening and subcutaneous fat stranding/edema within the right groin. There is mild right neural lymphadenopathy. There is a 5.6 x 3.6 cm right inguinal subcutaneous fluid collection demonstrating mild peripheral enhancement and adjacent fat stranding. This is concerning for an abscess. A postoperative seroma/hematoma could also have a similar appearance. No gas identified within this collection at this time. There are few mildly enlarged right external iliac lymph nodes. These may be reactive. Small amount of ascites has improved in the interval. The gallbladder is contracted. The main portal vein is patent. The liver, spleen, adrenal glands, pancreas, and kidneys are unremarkable. No hydronephrosis. Normal caliber abdominal aorta. No retroperitoneal or pelvic lymphadenopathy. The bladder is unremarkable. A few colonic diverticula. No evidence for acute diverticulitis. No bowel wall thickening or obstruction. Normal appendix. IMPRESSION: 1. There is a 5.6 x 3.6 cm peripheral enhancing subcutaneous fluid collection within the right groin with surrounding fat stranding, skin thickening, and mild lymphadenopathy. This is concerning for an abscess. A postoperative seroma/hematoma could also have a similar appearance. 2. Small amount of ascites which has improved. 3. Trace pericardial effusion has improved. 4. Additional findings as described above. ACT 112: Negative or not required by law. Electronically signed by: Yoan Muñiz M.D. 01/13/2023 7:37 PM [facility] Narrative Patient was seen and evaluated as above in room B02. Review was performed of [facility] nursing notes and vital signs. I did review pertinent previous visits and patient history. After obtaining a thorough history and physical examination the above work up was performed. Patient presents to us today for evaluation of right inguinal discomfort, edema and erythema which on examination is concerning for fluid just deep to the surface. No active drainage presently. Options of care were discussed with the patient. IV access was established. Labs were drawn. There is no leukocytosis. Minor anemia noted with hemoglobin of 12.5. No emergent metabolic disturbance. Procalcitonin negative. Lactate is normal. Urinalysis does not suggest infection. CT scan was obtained of the abdomen/pelvis. Results as above. There is a 5.6 x 3.6 cm peripherally enhancing subcutaneous fluid collection within the right groin with surrounding fat stranding, skin thickening and mild lymphadenopathy. Per radiology report this is concerning for an abscess. The postoperative seroma/hematoma could also have a similar appearance per radiologist. I did consult general surgery which came to evaluate the patient. Plan is for potential IR drain placement tomorrow. I will order antibiotics at the present time over concern for possible infection. Case discussed with the medicine service. Patient is amenable to plan of care. Please refer to further documentation regarding his stay. In the evaluation and treatment of this patient the following differential diagnoses were entertained: Postoperative seroma, abscess, cellulitis, Maite gangrene, among others. Impression & Plan Abscess of groin, right Discharge Plan Visit Data Chief Complaint: Wound Stated Complaint: PREVIOUS SURGERY, WOUND, POSSIBLE INFECTION ED Provider: Doc Sanchez ED Midlevel Provider: Kirby Urbano Discharge Problem: Abscess of groin, right Patient Disposition: Admitted As Inpatient Condition: Good Discharge Instructions Interventions: ED Discharge Assessment Last Done: 01/13/23 23:00
[2023-01-13 18:07] LABS: Basophils # (auto) 0.07 K/uL (0-0.2); Basophils % (auto) 0.8 %; Eosinophils # (auto) 0.51 K/uL (0-0.50); Eosinophils % (auto) 6.1 %; Hematocrit (blood only) 38.9 % (42.0-52.0); Hemoglobin 12.5 g/dl (14.0-18.0); Immature Granulocytes # (auto) 0.04 K/uL (0.01-0.20); Immature Granulocytes % (auto) 0.5 %; Lymphocytes # (auto) 1.45 K/uL (1.2-3.4); Lymphocytes % (auto) 17.3 %; Mean Corpuscular Hemoglobin 25.4 pg (25.0-34.0); Mean Corpuscular Hgb Conc 32.1 g/dL (32.0-36.0); Mean Corpuscular Volume 79.1 fL (80.0-100.0); Mean Platelet Volume 9.4 fL (9.4-12.4); Monocytes # (auto) 0.79 K/uL (0.11-0.59); Monocytes % (auto) 9.4 %; Neutrophils # (auto) 5.53 K/uL (1.40-6.50); Neutrophils % (auto) 65.9 %; Platelet Count 351 K/uL (130-400); RDW Coefficient of Variation 15.2 % (11.5-14.5); RDW Standard Deviation 43.5 fL (36.4-46.3); Red Blood Count 4.92 M/uL (4.70-6.10); White Blood Count 8.39 K/ul (4.8-10.8)
[2023-01-13 18:23] LABS: Alanine Aminotransferase 37 U/L (7-52); Albumin Globulin Ratio 1.1 (0.9-2); Albumin Level 4.2 gm/dl (3.4-5.0); Alkaline Phosphatase 104 U/L (34-104); Anion Gap 9 (3-11); Aspartate Aminotransferase 22 U/L (13-39); BUN Creatinine Ratio 8.1 (10-20); Bilirubin,Total 0.3 mg/dl (0.2-1.0); Blood Urea Nitrogen 6 mg/dl (6-23); Carbon Dioxide 25 mmol/L (21-32); Chloride 106 mmol/L (98-107); Creatinine Clr Calc Pharmacy 177.9 ml/min; Est GFR (African American) > 150.0 ml/min; Globulin 3.8 gm/dl (2.5-4.0); Glucose 92 mg/dl (70-99(Fasting)); Potassium 3.7 mmol/L (3.5-5.1); Sodium 140 mmol/L (136-145)
[2023-01-13] MEDS ORDERED: OPTIRAY 320 100ml IV ONE (18:48)
[2023-01-13 19:12] LABS: Appearance Urine Clear (Clear); Bilirubin Urine Negative (Negative); Blood Urine Negative (Negative); Color Urine Yellow; Glucose Urine UA Negative (Negative); Ketones Urine Negative (Negative); Leukocyte Esterase Urine Negative (Negative); Nitrite Urine Negative (Negative); Protein Urine Negative (Negative); Specific Gravity Urine 1.009 (1.000-1.030); Urobilinogen Urine Negative (Negative); pH Urine 5.5 (4.5-7.5)
--- NOTE | 2023-01-13 19:40 | CT Scan Report ---
ABDOMEN AND PELVIS CT WITH IV CONTRAST CT DOSE: 1507.39 mGy.cm HISTORY: s/p R inguinal surgery, now edema, erythema TECHNIQUE: Multiaxial CT images of the abdomen and pelvis were performed following the use of intrave nous contrast. A dose lowering technique was utilized adhering to the principles of ALARA. COMPARISON STUDY: Abdomen and pelvis CT 12/05/2022. FINDINGS: Scattered small peripheral densities within the lung bases and a right middle lobe patchy d ensity are similar to the prior study. This could represent areas of scarring or atelectasis. No pneu moperitoneum. No pneumatosis. No acute fractures identified. Trace pericardial effusion has improved. Skin thickening and subcutaneous fat stranding/edema within the right groin. There is mild right mackenzie ral lymphadenopathy. There is a 5.6 x 3.6 cm right inguinal subcutaneous fluid collection demonstrati ng mild peripheral enhancement and adjacent fat stranding. This is concerning for an abscess. A posto perative seroma/hematoma could also have a similar appearance. No gas identified within this collecti on at this time. There are few mildly enlarged right external iliac lymph nodes. These may be reactiv e. Small amount of ascites has improved in the interval. The gallbladder is contracted. The main port al vein is patent. The liver, spleen, adrenal glands, pancreas, and kidneys are unremarkable. No hydr onephrosis. Normal caliber abdominal aorta. No retroperitoneal or pelvic lymphadenopathy. The bladder is unremarkable. A few colonic diverticula. No evidence for acute diverticulitis. No bowel wall thic kening or obstruction. Normal appendix. IMPRESSION: 1. There is a 5.6 x 3.6 cm peripheral enhancing subcutaneous fluid collection within the right groin with surrounding fat stranding, skin thickening, and mild lymphadenopathy. This is concerning for an abscess. A postoperative seroma/hematoma could also have a similar appearance. 2. Small amount of ascites which has improved. 3. Trace pericardial effusion has improved. 4. Additional findings as described above. ACT 112: Negative or not required by law. Electronically signed by: Yoan Muñiz M.D. 01/13/2023 7:37 PM
[2023-01-13] MEDS ORDERED: DAPTOmycin 325 MG in SYRINGE 0 ML IV STA (21:02)
[2023-01-13] MEDS ORDERED: CEFEPIME 2,000 MG/20 ML VIAL IV STA (21:02)
--- NOTE | 2023-01-13 21:29 | Surgery Consultation ---
Date of Consultation January 13, 2023 Assessment & Plan (1) Abscess: I discussed with the treating clinician emergency department the patient will be admitted on the hospitalist service. It appears as though the patient has a fluid collection at his previous lymph node biopsy site. At this time we cannot ascertain whether this represents a hematoma, seroma or abscess. We therefore recommend proceeding as follows: I discussed with the patient that the only way to definitively ascertain what this collection is is to sample it. I discussed with the patient that we could accomplish this by an open surgical procedure or we could first attempt a less invasive procedure by interventional radiology with percutaneous drainage under either ultrasound or CT guidance. After discussion with the patient he decides he would like to try the less invasive means first. I did discuss with the patient that we will reach out to our IR colleagues tomorrow and see if this can be accomplished. I did discuss with the patient that if they are unable to adequately aspirate, sample, and drain this collection an open procedure may ultimately be required. The treating clinician emergency department notes that he will initiate antibiotics. He has thus far ordered daptomycin and cefepime. Appropriate cultures have been sent and these can be monitored and antibiotics to be tailored based on these results. Antibiotics can also be tailored based on any culture data obtained from fluid aspiration tomorrow. At the present time the patient does not appear to be septic as he is normotensive without tachycardia or fever. Additional recommendations be forthcoming based on his clinical course as it unfolds Supervising Physician Co-Signing Physician Notes Patient discussed with Nicola Gruber overnight, labs and imaging reviewed, agree with above. 4 weeks status post right inguinal lymph node biopsy with fluid collection and some erythema, could represent lymphocele versus abscess or hematoma/seroma. IR drainage planned for following day, see today's progress note for further details. History of Present Illness Reason for Consultation: Right groin swelling History of Present Illness This is a 22-year-old male who was previously seen at [facility] by the surgical service on December 07 of this year. On December 07 the patient was seen by Dr. Benoit secondary to abdominal ascites. Patient initially presented to [facility] at that time secondary to abdominal pain of approximately 2 weeks duration with associated diarrhea. The patient did undergo a CT scan abdomen pelvis that showed that he had a moderate amount of abdominal pelvic ascites with some peritoneal thickening. Patient was also noted to have some thick walled loops of small bowel. Patient did undergo paracentesis on December 06 of this year and cytology was negative for malignancy. After the initial evaluation by surgery the patient developed some emesis as well as questionable coffee-ground emesis. As there is no clear etiology to the patient's symptomatology was recommended by the surgical service that patient be transferred to a tertiary care center for further evaluation. Patient notes that he was transferred to [facility] in [place]. The patient notes that while at [place] on December 18 he did undergo a right groin lymph node biopsy. The patient notes that many of his symptoms that he presented with resolved but they still did not ascertain the exact etiology of his symptoms. The patient presented to the emergency department today secondary to approximately 2 days of issues with his right groin biopsy site. The patient notes over the past 2 days the biopsy incision site appears to be more swollen and erythematous. He notes that it is slightly warm to touch but has not been draining any serous or puslike fluid. He denies any fevers, shakes, or chills. He does note that over the past 24 hours the area is somewhat tender to palpation. Because of the appearance of this area he presented to the emergency department. In the emergency department today the patient has had labs and imaging which I independent reviewed. On the CT scan of the abdomen and pelvis the patient was noted to have a 5.6 x 3.6 peripheral enhancing subcutaneous fluid collection in the right groin with some surrounding fat stranding. There are some skin thickening and mild lymphadenopathy as well. Interpreting radiologist could not differentiate whether this represented a seroma, hematoma, or abscess. Labs include a CBC her white blood cell count was normal. His hemoglobin and hematocrit was 12.5 and 38.9. Platelet count was normal. Chemistry profile showed sodium and potassium are normal. BUN and creatinine were both normal as well. Patient had a normal lactic acid level and no elevation of his LFTs. A procalcitonin level was also nonelevated. A urinalysis was not indicative of infection. At the time of my interview he was resting comfortably in bed and he was in no distress Allergies Allergy/AdvReac Type Severity Reaction Status Date / Time perflutren AdvReac Intermediate TACHYCARDIA--PERFLUTEN Verified 01/13/23 18:09 LIPID MICROSPHERES Home Medications Medication Instructions Recorded Confirmed Type colchicine 0.6 mg tablet 0.6 mg PO DAILY 01/13/23 01/13/23 History ibuprofen 200 mg tablet See Rx Instructions .Route .COMPLEX 01/13/23 01/13/23 History omeprazole 20 mg capsule,delayed 20 mg PO DAILY 01/13/23 01/13/23 History release Patient History Medical History (Updated 01/14/23 @ 11:50 by Siena Dorsey MD) Hx of ascites Hx of pleural effusion Surgical History (Updated 01/14/23 @ 00:46 by Kirby Urbano PA-C) History of lymph node biopsy Hx of laparoscopy Social History Smoking Status: Never smoker Hx Alcohol Use: No Hx Substance Use: No Preferred Language: Luxembourgish Communication Ability: Effective Financial Professional Required: No Beliefs That Will Affect Care: None Current Living Situation: Alone Feels Safe at Home: Yes Assistive Devices: None Review of Systems Constitutional: no fever and no chills Ear, Nose, Mouth, Throat: no hearing loss Respiratory: no cough Cardiovascular: no chest pain Gastrointestinal: no abdominal pain, no nausea and no vomiting Musculoskeletal: no back pain Integumentary: as per Subjective / HPI Neurologic: no localized weakness Physical Exam Physical Exam: The patient's right groin was examined. He had a transverse incision in the right groin where his lymph node was biopsied. This incision was intact without any open areas or areas of drainage. There is some circumferential erythema around the incision extending approximately 2 cm in all directions. There is no crepitus in the soft tissue. The area was slightly warm to touch but was overall not very painful to palpation. The area was slightly tense. Constitutional: WD/WN, vitals as above Eyes: no conjunctival abnormality ENMT: Ears: no hearing impairment Neck: trachea midline Respiratory: normal respiratory effort; no respiratory distress and no labored breathing Cardiovascular: Rate/Rhythm: regular rate and regular rhythm Gastrointestinal (Abdomen): Soft and nonrigid. It is nontender to palpation. Musculoskeletal: No calf tenderness Skin: no rashes Neurologic: moves all extremities Psychiatric: A+Ox3, euthymic affect Results & Data Vital Signs (Past 12 Hours) Vital Signs Temp Pulse Pulse Resp BP BP Pulse Ox 01/13/23 20:03 73 17 135/81 99 01/13/23 18:53 95 H 17 140/81 98 01/13/23 17:19 36.5 C 84 18 126/82 98 O2 Del Method 01/13/23 20:03 Room Air 01/13/23 18:53 01/13/23 17:19 Room Air PG Care Time/CCT Total # of Minutes Spent Total Time Spent with Patient: Total time spent is greater than 50% in coordination of care (as documented) at patient's floor/unit and/or counseling patient: Coding Level of Care Code 15237 IN/OBS CONSULT LVL 5,80M Diagnoses Abscess L02.91
--- NOTE | 2023-01-13 21:34 | History & Physical Report ---
Date of Service January 13, 2023 Assessment & Plan (1) Abscess: Plan: 22 yo male with PMHx abdominal ascites s/p paracentesis, pericarditis, and s/p R groin lymph node biopsy presents with R groin wound infection. #R inguinal fluid collection -presented with 5 days worsening pain and erythema of R groin. He is s/p R inguinal lymph node biopsy in early December. No leukocytosis. Afebrile. Blood cx pending. -CT A/P with fluid collection. Unable to ascertain hematoma vs seroma vs abscess. -gen surg following -Received daptomycin and cefepime in ED, continue. -IR consulted for percutaneous drainage if possible. If unable to aspirate, may necessitate open procedure. #Pericarditis #Pericardial Effusion -diagnosed during previous admission. On discharge from [facility], was started on pericarditis treatment. Follows with cardiology. -cont. colchicine 0.3mg bid. Dose was halved due to diarrhea. -cont. weekly ibuprofen taper. Starting 01/14/23, he is on a TID 600mg, 400mg, 400mg schedule for the next week. The subsequent week he would be tapered down to TID 400mg, 400mg, 400mg. -cont. PPI for ppx #H/o abdominal ascites #H/o pleural effusion -evaluated during previous admission and now s/p paracentesis. Unclear etiology thus far. Continues with outpatient workup. Has several upcoming appointments in the next months with specialists. DVT ppx: SCDs; likely intervention tomorrow FEN/GI: NPO @ midnight Code Status: Full Dispo: med tele (2) Thickened small bowel: (3) Abdominal ascites: (4) Pleural effusion: Plan Patient seen and examined, chart reviewed, case discussed with Dr. Mcclure and I agree with the assessment and plan as above. In brief, patient is a 22yo male with ongoing workup for recent episode of abdominal ascites, pericardial effusion/pericarditis and lymphadenopathy. He had a right inguinal LN biopsy performed earlier this month and now presents with redness, swelling, induration and a fluid collection noted on CT. On exam he is afebrile, HD stable, non-toxic in appearance Skin - no rash HEENT - MMM, Neck supple Heart - +S1/S2, regular Lungs - CTA Abd - soft, NT/ND Ext - redness, firm induration right groin Labs and images reviewed Assessment/plan - possible infection vs seroma vs hematoma following LN biopsy -Continue antibiotics -IR consultation for possible drainage -Continue treatment for pericarditis -Remainder as above History of Present Illness Chief Complaint: wound infection Primary Care Provider: [facility] 22 yo male with PMHx abdominal ascites s/p paracentesis, pericarditis, and s/p R groin lymph node biopsy presents with R groin wound infection. 5 days ago patient started developing pain and erythema in his right inguinal area which has continued to worsen. Denies fevers, headache, fatigue, chest pain, shortness of breath, abdominal pain, nausea, vomiting, diarrhea, constipation, dysuria. Earlier this month he did have a right inguinal lymph node biopsy which is the likely source of his infection. Prior to his symptoms patient thought his wound was healing well. Of note patient has had an extensive work-up over the past couple of months. Beginning in November he had sudden onset abdominal ascites and was found to have associated pleural/cardiac effusion with right inguinal lymphadenopathy. Initial paracentesis was negative for malignancy. He was initially seen at [facility] but transferred to [facility] for further care. There he underwent a right groin lymph node biopsy. No known diagnosis to date. He is currently following with several specialists in the outpatient setting. Upon discharge from [facility] along with his pericardial effusion they diagnosed him with coinciding pericarditis and started him on anti-inflammatory therapy. He currently is on an ibuprofen weekly taper as well as colchicine for treatment. He also takes daily omeprazole to reduce ulcer risk. Allergies Allergy/AdvReac Type Severity Reaction Status Date / Time perflutren AdvReac Intermediate TACHYCARDIA--PERFLUTEN Verified 01/13/23 18:09 LIPID MICROSPHERES Home Medications Medication Instructions Recorded Confirmed Type colchicine 0.6 mg tablet 0.6 mg PO DAILY 01/13/23 01/13/23 History ibuprofen 200 mg tablet See Rx Instructions .Route .COMPLEX 01/13/23 01/13/23 History omeprazole 20 mg capsule,delayed 20 mg PO DAILY 01/13/23 01/13/23 History release Past Med/Surg History Medical History (Updated 01/14/23 @ 00:39 by Kirby Urbano PA-C) Hx of ascites Hx of pleural effusion Surgical History (Updated 01/14/23 @ 00:46 by Kirby Urbano PA-C) History of lymph node biopsy Hx of laparoscopy Social History Smoking Status: Never smoker Hx Alcohol Use: No Hx Substance Use: No Preferred Language: Cuban Communication Ability: Effective Open Die Inspector Required: No Beliefs That Will Affect Care: None Current Living Situation: Alone Feels Safe at Home: Yes Assistive Devices: None Review of Systems Review of Systems: All systems reviewed & are unremarkable except as noted in HPI & below Physical Exam Physical Exam: Constitutional: in no acute distress, pleasant and normal affect, intact memory. AOx3. Vitals as above. HEENT: No scleral injection or discharge. Moist mucous membranes. Neck: Supple without lymphadenopathy or thyromegaly. Trachea midline. Lungs: Clear to auscultation bilaterally with good effort. No wheezes/rales/rhonchi. Cardiac: Regular rate and rhythm. No murmurs. No extremity edema. 2+ distal peripheral pulses. Abdomen: Bowel sounds present. Soft, nontender, and nondistended.No guarding.No hepatosplenomegaly. MSK: No cyanosis or clubbing. Extremities motor strength 5/5. Skin: R groin with induration underlying previous surgical scar which is erythematous, warm, and mildly painful to palpation. Neurologic: no focal deficits Results & Data Results & Data Vital Signs (Past 12 Hours) Vital Signs Temp Pulse Pulse Resp BP BP Pulse Ox 01/13/23 20:03 73 17 135/81 99 01/13/23 18:53 95 H 17 140/81 98 01/13/23 17:19 36.5 C 84 18 126/82 98 O2 Del Method 01/13/23 20:03 Room Air 01/13/23 18:53 01/13/23 17:19 Room Air Laboratory Results Laboratory Results WBC 8.39 K/ul (4.8-10.8) 01/13/23 17:42 RBC 4.92 M/uL (4.70-6.10) 01/13/23 17:42 Hgb 12.5 g/dl (14.0-18.0) L 01/13/23 17:42 Hct 38.9 % (42.0-52.0) L 01/13/23 17:42 MCV 79.1 fL (80.0-100.0) L 01/13/23 17:42 MCH 25.4 pg (25.0-34.0) 01/13/23 17:42 MCHC 32.1 g/dL (32.0-36.0) 01/13/23 17:42 RDW Std Deviation 43.5 fL (36.4-46.3) 01/13/23 17:42 RDW Coeff of Ivan 15.2 % (11.5-14.5) H 01/13/23 17:42 Plt Count 351 K/uL (130-400) 01/13/23 17:42 MPV 9.4 fL (9.4-12.4) 01/13/23 17:42 Immature Gran % (Auto) 0.5 % 01/13/23 17:42 Neut % (Auto) 65.9 % 01/13/23 17:42 Lymph % (Auto) 17.3 % 01/13/23 17:42 [place] % (Auto) 9.4 % 01/13/23 17:42 Eos % (Auto) 6.1 % 01/13/23 17:42 Baso % (Auto) 0.8 % 01/13/23 17:42 Neut # (Auto) 5.53 K/uL (1.40-6.50) 01/13/23 17:42 Lymph # (Auto) 1.45 K/uL (1.2-3.4) 01/13/23 17:42 [place] # (Auto) 0.79 K/uL (0.11-0.59) H 01/13/23 17:42 Eos # (Auto) 0.51 K/uL (0-0.50) H 01/13/23 17:42 Baso # (Auto) 0.07 K/uL (0-0.2) 01/13/23 17:42 Immature Gran # (Auto) 0.04 K/uL (0.01-0.20) 01/13/23 17:42 Sodium 140 mmol/L (136-145) 01/13/23 17:42 Potassium 3.7 mmol/L (3.5-5.1) 01/13/23 17:42 Chloride 106 mmol/L (98-107) 01/13/23 17:42 Carbon Dioxide 25 mmol/L (21-32) 01/13/23 17:42 Anion Gap 9 (3-11) 01/13/23 17:42 BUN 6 mg/dl (6-23) 01/13/23 17:42 Creatinine 0.74 mg/dl (0.6-1.4) 01/13/23 17:42 Est Cr Clr Drug Dosing 177.9 ml/min 01/13/23 17:42 Est GFR ( Amer) > 150.0 ml/min 01/13/23 17:42 Est GFR (Non-Af Amer) 130.0 ml/min 01/13/23 17:42 BUN/Creatinine Ratio 8.1 (10-20) L 01/13/23 17:42 Glucose 92 mg/dl (70-99(Fasting)) 01/13/23 17:42 Lactate 1.4 mmol/L (0.4-2.0) 01/13/23 17:42 Calcium 9.0 mg/dl (8.6-10.3) 01/13/23 17:42 Total Bilirubin 0.3 mg/dl (0.2-1.0) 01/13/23 17:42 AST 22 U/L (13-39) 01/13/23 17:42 ALT 37 U/L (7-52) 01/13/23 17:42 Alkaline Phosphatase 104 U/L (34-104) 01/13/23 17:42 Total Protein 8.0 gm/dl (6.0-8.3) 01/13/23 17:42 Albumin 4.2 gm/dl (3.4-5.0) 01/13/23 17:42 Globulin 3.8 gm/dl (2.5-4.0) 01/13/23 17:42 Albumin/Globulin Ratio 1.1 (0.9-2) 01/13/23 17:42 Procalcitonin < 0.05 ng/ml (0-0.5) 01/13/23 17:42 Urine Color Yellow 01/13/23 18:45 Urine Appearance Clear (Clear) 01/13/23 18:45 Urine pH 5.5 (4.5-7.5) 01/13/23 18:45 Ur Specific [place] 1.009 (1.000-1.030) 01/13/23 18:45 Urine Protein Negative (Negative) 01/13/23 18:45 Urine Glucose (UA) Negative (Negative) 01/13/23 18:45 Urine Ketones Negative (Negative) 01/13/23 18:45 Urine Blood Negative (Negative) 01/13/23 18:45 Urine Nitrite Negative (Negative) 01/13/23 18:45 Urine Bilirubin Negative (Negative) 01/13/23 18:45 Urine Urobilinogen Negative (Negative) 01/13/23 18:45 Ur Leukocyte Esterase Negative (Negative) 01/13/23 18:45 Impressions Abdomen/Pelvis CT 01/13/23 17:[address] WITH IV CONTRAST CT DOSE: 1507.39 mGy.cm HISTORY: s/p R inguinal surgery, now edema, erythema TECHNIQUE: Multiaxial CT images of the abdomen and pelvis were performed following the use of intravenous contrast. A dose lowering technique was utilized adhering to the principles of ALARA. COMPARISON STUDY: Abdomen and pelvis CT 12/05/2022. FINDINGS: Scattered small peripheral densities within the lung bases and a right middle lobe patchy density are similar to the prior study. This could represent areas of scarring or atelectasis. No pneumoperitoneum. No pneumatosis. No acute fractures identified. Trace pericardial effusion has improved. Skin thickening and subcutaneous fat stranding/edema within the right groin. There is mild right neural lymphadenopathy. There is a 5.6 x 3.6 cm right inguinal subcutaneous fluid collection demonstrating mild peripheral enhancement and adjacent fat stranding. This is concerning for an abscess. A postoperative seroma/hematoma could also have a similar appearance. No gas identified within this collection at this time. There are few mildly enlarged right external iliac lymph nodes. These may be reactive. Small amount of ascites has improved in the interval. The gallbladder is contracted. The main portal vein is patent. The liver, spleen, adrenal glands, pancreas, and kidneys are unremarkable. No hydronephrosis. Normal caliber abdominal aorta. No retroperitoneal or pelvic lymphadenopathy. The bladder is unremarkable. A few colonic diverticula. No evidence for acute diverticulitis. No bowel wall thickening or obstruction. Normal appendix. IMPRESSION: 1. There is a 5.6 x 3.6 cm peripheral enhancing subcutaneous fluid collection within the right groin with surrounding fat stranding, skin thickening, and mild lymphadenopathy. This is concerning for an abscess. A postoperative seroma/hematoma could also have a similar appearance. 2. Small amount of ascites which has improved. 3. Trace pericardial effusion has improved. 4. Additional findings as described above. ACT 112: Negative or not required by law. Electronically signed by: Yoan Muñiz M.D. 01/13/2023 7:37 PM Resident Activity Tracking Resident Involvement: Resident Care Provided Care Provided: Adult Hospital Medicine
[2023-01-13] MEDS ORDERED: IBUPROFEN 600 MG TAB PO STA (23:00)
[2023-01-13] MEDS ORDERED: COLCHICINE 0.6 MG TAB PO STA (23:06)
[2023-01-14] MEDS ORDERED: ACETAMINOPHEN 325 MG TAB PO PRN (00:07)
[2023-01-14] MEDS ORDERED: POLYETHYLENE (MIRALAX) 17 GM PACK PO PRN (00:07)
[2023-01-14] MEDS ORDERED: ONDANSETRON 4 MG OD TAB PO PRN (00:07)
[2023-01-14] MEDS: SODIUM CHLORIDE 0.9% 1000ML 1,000 ML IV SCH ×2 (00:24→07:31)
--- NOTE | 2023-01-14 00:24 | Billing Data ---
Date of Service January 13, 2023 Coding Level of Care Code 61892 INT INP/OBS CARE
[2023-01-14] MEDS: CEFEPIME 2,000 MG in SYRINGE 0 ML IV SCH ×3 (05:35→22:44)
[2023-01-14] MEDS: IBUPROFEN 600 MG TAB PO SCH (08:17)
[2023-01-14] MEDS: COLCHICINE 0.6 MG TAB PO SCH ×2 (08:18→20:15)
[2023-01-14] MEDS: PANTOprazole 40 MG TAB PO SCH (08:18)
--- NOTE | 2023-01-14 08:42 | Surgery Progress Note ---
Date of Service January 14, 2023 Assessment & Plan (1) Abscess of groin, right: Plan: Patient here with what appears to be a wound infection s/p R groin LN biopsy at [facility] on 12/18 Blood work this AM is pending. He is otherwise afebrile with stable vital signs Area of concern is erythematous and indurated, mildly tender Continue on course of abx for now Will discuss with our IR colleagues about possible percutaneous drainage Admission and Anticipated Discharge Date Admission Date: January 13, 2023 Supervising Physician Co-Signing Physician Notes Patient seen and examined, labs and imaging reviewed, agree with above. Status post right inguinal lymph node biopsy 4 weeks ago now with fluid collection. This was aspirated this morning with some serous fluid followed by likely hematoma. There was no obvious purulent fluid. He denies any pain in the area, swelling is gone down slightly, still little bit red. On exam he is afebrile with stable vitals. Right groin soft, nontender, no large fluid collection present at this time. Some erythema. Given his history and normal white blood cell count and appearance of the CT scan, this may well represent a lymphocele, therefore we asked IR to drain it. We will await cultures, they can continue with antibiotics. He should follow-up with his surgeon in [place] as an outpatient. Patient may go home today Subjective Patient reports no complaints overnight. Denies fevers/chills or worsening pain at R LN biopsy site. Physical Exam Physical Exam: awake/alert, no distress Respiratory: normal respiratory effort Gastrointestinal (Abdomen): there is erythema and induration to R groin LN biopsy site, there appears to be a dark/moist scab in incision site. currently no drainage. no overly tender to palpation Results & Data Vital Signs (Past 12 Hours) Vital Signs Temp Pulse Pulse Resp BP BP Pulse Ox 01/14/23 08:07 36.8 C 94 H 17 113/72 96 01/14/23 06:51 66 01/14/23 03:23 36.5 C 76 16 107/68 97 01/14/23 00:18 36.7 C 81 16 129/84 97 01/13/23 23:00 01/13/23 23:00 84 16 142/80 H 97 01/13/23 21:33 80 16 132/72 98 O2 Del Method 07/31/23 08:07 Room Air 01/14/23 06:51 01/14/23 03:23 Room Air 01/14/23 00:18 Room Air 01/13/23 23:00 Room Air 01/13/23 23:00 Room Air 01/13/23 21:33 Room Air PG Care Time/CCT Total # of Minutes Spent Total Time Spent with Patient: Total time spent is greater than 50% in coordination of care (as documented) at patient's floor/unit and/or counseling patient: Coding Level of Care Code 40160 SUB INP/OBS CARE 07/11MIN Diagnoses Abscess of groin, right L02.214
[2023-01-14 08:48] LABS: Basophils # (auto) 0.07 K/uL (0-0.2); Basophils % (auto) 0.8 %; Eosinophils # (auto) 0.62 K/uL (0-0.50); Eosinophils % (auto) 7.5 %; Hemoglobin 11.3 g/dl (14.0-18.0); Immature Granulocytes # (auto) 0.03 K/uL (0.01-0.20); Immature Granulocytes % (auto) 0.4 %; Lymphocytes # (auto) 1.38 K/uL (1.2-3.4); Lymphocytes % (auto) 16.7 %; Mean Corpuscular Hemoglobin 25.1 pg (25.0-34.0); Mean Corpuscular Hgb Conc 32.3 g/dL (32.0-36.0); Mean Corpuscular Volume 77.8 fL (80.0-100.0); Mean Platelet Volume 9.1 fL (9.4-12.4); Monocytes # (auto) 0.85 K/uL (0.11-0.59); Monocytes % (auto) 10.3 %; Neutrophils # (auto) 5.32 K/uL (1.40-6.50); Neutrophils % (auto) 64.3 %; Platelet Count 288 K/uL (130-400); RDW Coefficient of Variation 15.2 % (11.5-14.5); RDW Standard Deviation 42.3 fL (36.4-46.3); White Blood Count 8.27 K/ul (4.8-10.8)
[2023-01-14 09:04] LABS: Alanine Aminotransferase 27 U/L (7-52); Albumin Globulin Ratio 1.1 (0.9-2); Albumin Level 3.4 gm/dl (3.4-5.0); Alkaline Phosphatase 82 U/L (34-104); Anion Gap 5 (3-11); Aspartate Aminotransferase 15 U/L (13-39); BUN Creatinine Ratio 11.3 (10-20); Bilirubin,Total 0.4 mg/dl (0.2-1.0); Blood Urea Nitrogen 8 mg/dl (6-23); Calcium 8.7 mg/dl (8.6-10.3); Carbon Dioxide 29 mmol/L (21-32); Chloride 108 mmol/L (98-107); Creatinine Clr Calc Pharmacy 184.1 ml/min; Est GFR (African American) > 150.0 ml/min; Est GFR (Non-African American) 132.3 ml/min; Globulin 3.2 gm/dl (2.5-4.0); Glucose 95 mg/dl (70-99(Fasting)); Potassium 3.7 mmol/L (3.5-5.1); Sodium 142 mmol/L (136-145); Total Protein 6.6 gm/dl (6.0-8.3)
--- NOTE | 2023-01-14 11:52 | Hospitalist Progress Note ---
Date of Service January 14, 2023 Assessment & Plan (1) Abscess: Plan: 22 yo male with PMHx abdominal ascites s/p paracentesis, pericarditis, and s/p R groin lymph node biopsy presents with R groin wound infection. -presented with 5 days worsening pain and erythema of R groin. He is s/p R inguinal lymph node biopsy in early December. No leukocytosis. Afebrile. Blood cx pending. -CT A/P showed a 5.6 x 3.6 cm peripheral enhancing subcutaneous fluid collection within the right groin with surrounding fat stranding, skin thickening, and mild lymphadenopathy. This is concerning for an abscess. A postoperative seroma/hematoma could also have a similar appearance. -gen surg following, plan is either IR drainage or surgical drainage -Currently on daptomycin and cefepime, will continue (2) Abdominal ascites: Plan: #H/o abdominal ascites #H/o pleural effusion -evaluated during previous admission and now s/p paracentesis. Unclear etiology thus far. Continues with outpatient workup. Has several upcoming appointments in the next months with specialists. (3) Pericarditis: Plan: #Pericarditis #Pericardial Effusion -diagnosed during previous admission. On discharge from [facility], was started on pericarditis treatment. Follows with cardiology. -cont. colchicine 0.3mg bid. Dose was halved due to diarrhea. -cont. weekly ibuprofen taper. Starting 01/14/23, he is on a TID 600mg, 400mg, 400mg schedule for the next week. The subsequent week he would be tapered down to TID 400mg, 400mg, 400mg. -cont. PPI for ppx (4) Pleural effusion: (5) Thickened small bowel: Plan continue hospitalization Admission and Anticipated Discharge Date Admission Date: January 13, 2023 Review of Systems Review of Systems: All systems reviewed are negative, apart from the ones contained in the history. Physical Exam Physical Exam: The patient is awake, alert and oriented 3, well developed and well nourished, normocephalic and atraumatic, lying in bed and in no acute distress. HEENT--PERRL, EOMI, mucous membranes and oropharynx mildly dry Neck--supple. No JVD. No bruits. Thyroid normal, trachea midline, no adenopathy. Heart--normal S1 and S2. No murmurs, rubs or gallops. Lungs--clear bilaterally, no respiratory distress, no accessory muscle use. Abdomen--normal bowel sounds and soft. Mild epigastric and left sided abdominal pain Extremities-right groin swelling Dermatologic--normal skin turgor, normal color, no abnormal lymph nodes, no rash. Neurologic--cranial nerves II through XII grossly intact. Rheumatologic--normal range of motion. Psychiatric--normal affect. Results & Data Results & Data Vital Signs (Past 12 Hours) Vital Signs Temp Pulse Pulse Resp BP Pulse Ox O2 Del Method 01/14/23 11:37 98.1 F 84 17 133/85 95 Room Air 01/14/23 08:07 98.2 F 94 H 17 113/72 96 Room Air 01/14/23 06:51 66 01/14/23 03:23 97.7 F 76 16 107/68 97 Room Air 01/14/23 00:18 98.1 F 81 16 129/84 97 Room Air PG Care Time/CCT Total # of Minutes Spent Total Time Spent with Patient: Total time spent is greater than 50% in coordination of care (as documented) at patient's floor/unit and/or counseling patient: Coding Level of Care Code 94904 SUB INP/OBS CARE 2/35MIN Diagnoses Abscess L02.91 Abdominal ascites R18.8 Pericarditis I31.9 Pleural effusion J90 Thickened small bowel K63.9 Time Spent (min) 35
[2023-01-14] MEDS: IBUPROFEN 200 MG TAB PO SCH ×2 (13:16→20:19)
[2023-01-14] MEDS ORDERED: IBUPROFEN 200 MG TAB PO SCH (14:00)
--- NOTE | 2023-01-14 15:26 | Ultrasound Report ---
Ultrasound-guided right groin fluid collection aspiration INDICATION: Right groin fluid collection; status post excisional lymph node biopsy PROCEDURE: Procedure and risks were explained. Informed consent was obtained. A final timeout was com pleted. The right groin was prepped and draped in sterile fashion. 1% buffered lidocaine was utilized for skin anesthesia. Utilizing ultrasound guidance, an 18-gauge Chiba needle was advanced into the complex right groin flu id collection. Ultrasound images were obtained. Initial aspiration yielded approximately 5 mL of yell ow fluid without radha pus. Continued aspiration while advancing the needle through multiple loculati ons yielded an additional 25 mL of serosanguineous fluid. The needle was removed and Band-Aid applied . The patient tolerated the procedure well. IMPRESSION: Right groin fluid collection aspiration as detailed above. No radha pus identified, there fore no drainage catheter was placed. Performed, dictated, and signed by Josh Gustafson PA-C; to be co-signed by Dr. Antwan Mars. Electronically signed by: Antwan Mars M.D. 01/14/2023 5:35 PM
[2023-01-14] MEDS ORDERED: DAPTOmycin 325 MG in SYRINGE 0 ML IV SCH (21:00)
[2023-01-15] MEDS: CEFEPIME 2,000 MG in SYRINGE 0 ML IV SCH ×2 (05:41→12:58)
[2023-01-15] MEDS: IBUPROFEN 600 MG TAB PO SCH (08:26)
[2023-01-15] MEDS: PANTOprazole 40 MG TAB PO SCH (08:26)
[2023-01-15] MEDS: COLCHICINE 0.6 MG TAB PO SCH (08:26)
--- NOTE | 2023-01-15 12:42 | Discharge Summary ---
Date of Service January 15, 2023 Admission HPI Per Admitting Provider 22 yo male with PMHx abdominal ascites s/p paracentesis, pericarditis, and s/p R groin lymph node biopsy presents with R groin wound infection. 5 days ago patient started developing pain and erythema in his right inguinal area which has continued to worsen. Denies fevers, headache, fatigue, chest pain, shortness of breath, abdominal pain, nausea, vomiting, diarrhea, constipation, dysuria. Earlier this month he did have a right inguinal lymph node biopsy which is the likely source of his infection. Prior to his symptoms patient thought his wound was healing well. Of note patient has had an extensive work-up over the past couple of months. Beginning in November he had sudden onset abdominal ascites and was found to have associated pleural/cardiac effusion with right inguinal lymphadenopathy. Initial paracentesis was negative for malignancy. He was initially seen at [facility] but transferred to [facility] for further care. There he underwent a right groin lymph node biopsy. No known diagnosis to date. He is currently following with several specialists in the outpatient setting. Upon discharge from [facility] along with his pericardial effusion they diagnosed him with coinciding pericarditis and started him on anti-inflammatory therapy. He currently is on an ibuprofen weekly taper as well as colchicine for treatment. He also takes daily omeprazole to reduce ulcer risk. Principal Diagnosis right groin fluid collection Discharge Exam The patient is awake, alert and oriented 3, well developed and well nourished, normocephalic and atraumatic, lying in bed and in no acute distress. HEENT--PERRL, EOMI, mucous membranes and oropharynx mildly dry Neck--supple. No JVD. No bruits. Thyroid normal, trachea midline, no adenopathy. Heart--normal S1 and S2. No murmurs, rubs or gallops. Lungs--clear bilaterally, no respiratory distress, no accessory muscle use. Abdomen--normal bowel sounds and soft. Mild epigastric and left sided abdominal pain Extremities-right groin swelling Dermatologic--normal skin turgor, normal color, no abnormal lymph nodes, no rash. Neurologic--cranial nerves II through XII grossly intact. Rheumatologic--normal range of motion. Psychiatric--normal affect. Discharge Data Allergies Allergy/AdvReac Type Severity Reaction Status Date / Time perflutren AdvReac Intermediate TACHYCARDIA--PERFLUTEN Verified 01/13/23 18:09 LIPID MICROSPHERES Consultations 01/13/23 21:06 ED Decision to Admit Stat 01/13/23 22:20 Consult Radiology Routine 01/13/23 22:33 Consult General Surgery Routine Ordered Studies 01/13/23 17:32 CT abd pelvis IV con only Stat 01/14/23 09:22 IR AD softtisspercutan w/gdnce Urgent Hospital Course (1) Abscess: 22 yo male with PMHx abdominal ascites s/p paracentesis, pericarditis, and s/p R groin lymph node biopsy presents with R groin wound infection. -presented with 5 days worsening pain and erythema of R groin. He is s/p R inguinal lymph node biopsy in early December. No leukocytosis. Afebrile. Blood cx pending. -CT A/P showed a 5.6 x 3.6 cm peripheral enhancing subcutaneous fluid collection within the right groin with surrounding fat stranding, skin thickening, and mild lymphadenopathy. This is concerning for an abscess. A postoperative seroma/hematoma could also have a similar appearance. -gen surg following, IR was also consulted, patient taken to the OR yesterday and the fluid aspirated did not show any evidence of abscess but there was serosanguineous and yellow -We will follow-up with surgery outpatient, discharged home on p.o. Augmentin and ciprofloxacin for 7 days (2) Abdominal ascites: #H/o abdominal ascites #H/o pleural effusion -evaluated during previous admission and now s/p paracentesis. Unclear etiology thus far. Continues with outpatient workup. Has several upcoming appointments in the next months with specialists. (3) Pericarditis: #Pericarditis #Pericardial Effusion -diagnosed during previous admission. On discharge from [facility], was started on pericarditis treatment. Follows with cardiology. -cont. colchicine 0.3mg bid. Dose was halved due to diarrhea. -cont. weekly ibuprofen taper. Starting 01/14/23, he is on a TID 600mg, 400mg, 400mg schedule for the next week. The subsequent week he would be tapered down to TID 400mg, 400mg, 400mg. -cont. PPI for ppx (4) Pleural effusion: (5) Thickened small bowel: Plan Discharge home Total Time Total Time Spent Total Time Spent (In Minutes): 35 Discharge Plan Discharge Items Patient Disposition: Home - Self-Care Reason For Visit: WOUND INFECTION Discharge Diagnosis: groin abscess Condition on Discharge: Good Activity: Resume your previous activity Non-emergency contact: Primary Care Provider Call non-emergency contact if: you have any medication questions Follow-up/Referrals: [facility] [Primary Care Provider] - (PLEASE CALL YOUR PRIMARY CARE PROVIDER TO SCHEDULE A DISCHARGE FOLLOW-UP APPOINTMENT WITHIN 7-10 DAYS) Diet: Regular Addtl Attending Provider Instructions: please follow up with your doctors at [facility] Pending Studies at Discharge: No Stand-Alone Forms[facility] Medications and DC Order Prescriptions: New amoxicillin-pot clavulanate [Augmentin] 500-125 mg tablet 1 tab PO BID Qty: 14 0RF ciprofloxacin HCl 500 mg tablet 500 mg PO BID Qty: 14 0RF Continued ibuprofen 200 mg Tablet See Rx Instructions .ROUTE .COMPLEX Rx Instructions: TAKES 600 MG QAM & QHS, THEN 400 MG DAILY @ NOON. omeprazole 20 mg capsule,delayed release(DR/EC) 20 mg PO DAILY colchicine 0.6 mg tablet 0.6 mg PO DAILY Discharge Orders: Discharge Order (Routine); Ordered 01/15/23 Ordered By: Siena Dorsey Admission Data Admit Date/Time: 01/13/23 22:20 Attending Provider: Siena Dorsey Admit Provider: Hernan Mcclure Primary Care Provider: [facility] Other Providers: Aisha Loera ; Omaira Page ; Antwan Mars ; Luis Monets ; Josh Gustafson ; Yoan Muñiz ; Rob Buitrago ; Adonay Gray ; Jaiden Lezama ; Mariano Brewer ; Eulalia Kenyon Coding Level of Care Code 37972 INP/OBS DISCH >30 MIN Diagnoses Abscess L02.91 Abdominal ascites R18.8 Pericarditis I31.9 Pleural effusion J90 Thickened small bowel K63.9 Time Spent (min) 35
[2023-01-15] MEDS: IBUPROFEN 200 MG TAB PO SCH (12:57)
--- NOTE | 2023-01-16 05:31 | Electrocardiogram Report ---
Test Reason : Blood Pressure : / mmHG Vent. Rate : 081 BPM Atrial Rate : 081 BPM P-R Int : 172 ms QRS Dur : 088 ms QT Int : 350 ms P-R-T Axes : 008 009 015 degrees QTc Int : 406 ms Normal sinus rhythm Early repolarization When compared with ECG of 05-DEC-2022 17:27, No significant change was found Confirmed by Jerad Paredes ([id number]) on 01/16/2023 5:30:47 AM Referred By: REFERRED SELF Confirmed By:Jerad Paredes
[2023-01-21] MEDS ORDERED: IBUPROFEN 200 MG TAB PO SCH (09:00)
== END 2023-01-15 14:17 | disposition home or self-care (01) | DRG 863 ==
LOC: ED 17:13 → 2W 22:20 → SUATTDRO 22:20 → 2W 23:00